=== PATIENT | female | born 1965 | race Caucasian/White ===

== ENCOUNTER 2022-09-08 10:31 | Emergency (ER) | payer BC, SELFPAY ==
[2022-09-08 10:39] VITALS: BP 127/64; PULSE 71; RESP 16; TEMP 36.6; O2SAT 100
--- NOTE | 2022-09-08 12:31 | ED.URI ---
HPI - URI/Sore Throat General Chief Complaint: Upper Respiratory Infection Stated Complaint: cough and wheezing Time Seen by Provider: 09/08/22 12:31 Source: patient and RN notes reviewed Mode of arrival: ambulatory Limitations: no limitations History of Present Illness HPI Narrative: 57-year-old female presents to [facility] [place] for with a 10 day history respiratory congestion, fatigue, sinus drainage,facial pressure, with cough with symptoms increased since yesterday with wheezing. Patient reports that she has had low grade fevers for the past 2 days highest 99.3F. Patient has been taking Tylenol and Mucinex for her symptoms. Patient reports that she has been COVID vaccinated and also booster and has had flu shot also. MD elicited complaint: cough Onset (ago): day(s) (10 with increased symptoms since yesterday.) Treatments prior to arrival: acetaminophen and other (Mucinex) Related Data Home Medications Medication Instructions Recorded Confirmed Celebrex 250 mg PO DAILY 11/01/19 09/08/22 Prozac 40 mg PO DAILY 11/01/19 09/08/22 omeprazole 40 mg PO DAILY 11/01/19 09/08/22 simvastatin 20 mg PO DAILY 11/01/19 09/08/22 Allergies Allergy/AdvReac Type Severity Reaction Status Date / Time azithromycin [From Zithromax] Allergy Rash Verified 09/08/22 12:08 Sulfa (Sulfonamide Allergy Rash Verified 09/08/22 12:08 Antibiotics) Review of Systems Review of Systems: CONSTITUTIONAL:Reports malaise, chills, sweats, or fever. EYES: Denies visual changes, redness, or discharge. ENT: Reports rhinorrhea, congestion, sinus pain, no otalgia no sore throat. CARDIOVASCULAR: Denies chest pain, palpitations, or edema. RESPIRATORY: Reports cough.? Denies dyspnea. GASTROINTESTINAL: Denies abdominal pain, nausea, vomiting, diarrhea SKIN: Denies rash or itching. MUSCULOSKELETAL: Denies myalgia. NEUROLOGIC: Denies headache, reports fatigue All systems reviewed & are unremarkable except as noted in HPI and below PMFSH Past Medical History Medical History (Updated 09/13/22 @ 11:17 by Mary Mccall NP) Anxiety and depression Arthritis Elevated cholesterol GERD (gastroesophageal reflux disease) Hypertension Kidney stone UTI (urinary tract infection) Surgical History Surgical History (Updated 09/13/22 @ 11:24 by Mary Mccall NP) H/O: hysterectomy partial History of ankle surgery left History of bladder surgery History of cholecystectomy Hx of total knee replacement Previous back surgery S/P removal of parathyroid gland Social History Social History (Updated 09/13/22 @ 11:14 by Mary Mccall NP) Smoking status: Never smoker Alcohol intake: unknown Substance use type: does not use Gender identity (if verbalized by the patient): Female Comments At time of signature, agree with nursing past medical, surgical, social and family history. There is no relevant family history pertinent to the presenting complaint Exam Narrative: GENERAL: Well-appearing, well-nourished, and in no acute distress. HEAD: Normocephalic EYES: PERRLA, conjunctivae clear ENT: Nares clear, turbinates edematous and erythematous, clear discharge. Mucous membranes moist. TM pearly davenport with dull light reflex bilaterally; no tragal tenderness. Oropharynx erythematous without lesions. Tonsils absent and without throat exudate, no drooling, no hoarseness, no trismus, uvula midline.post nasal drainage NECK: Supple. No lymphadenopathy CHEST: scattered wheezing on auscultation, breath sounds equal. wheezing present, no rhonchi, rales, or stridor. No respiratory distress, speaks in full sentences.SAO2 100% on room air HEART: Regular rate and rhythm. No murmur heard. SKIN: Warm, dry, no rash. NEURO: Alert and oriented x3. PSYCH: Normal mood and affect Course Course Emergency Course: Patient is aware of diagnosis, understands and agrees to treatment plan.? Anticipatory guidance given.? Patient agrees to follow-up
== END 2022-09-08 13:07 | disposition home or self-care (01) ==
PROVIDERS: Emergency Provider Registered Nurse; PCP Physician Assistant
DX: J32.9 Chronic sinusitis, unspecified (principal); J40 Bronchitis, not specified as acute or chronic; M19.90 Unspecified osteoarthritis, unspecified site; E78.00 Pure hypercholesterolemia, unspecified; K21.9 Gastro-esophageal reflux disease without esophagitis; I10 Essential (primary) hypertension; F41.9 Anxiety disorder, unspecified; F32.A Depression, unspecified; Z90.711 Acquired absence of uterus with remaining cervical stump; Z96.659 Presence of unspecified artificial knee joint; Z90.89 Acquired absence of other organs
CPT/HCPCS: 99213; G0463

== ENCOUNTER 2023-01-21 15:10 | Emergency (ER) | payer BC, SELFPAY ==
[2023-01-21 15:19] VITALS: BP 154/75; PULSE 66; RESP 16; TEMP 36.8; O2SAT 98
--- NOTE | 2023-01-21 15:26 | ED.URI ---
HPI - URI/Sore Throat General Chief Complaint: Upper Respiratory Infection Stated Complaint: Chest Congestion/Sore Throat Source: patient and RN notes reviewed History of Present Illness HPI Narrative: 57-year-old female presents to urgent care with complaints of chest congestion and cough worsening over the last week. Patient states this started with itchy ears, itchy throat, and upper respiratory symptoms that have now travel to her chest. Patient states she has been having the symptoms ROS week or so. Patient states today she noticed she was winded with walking at [facility]. Denies any fevers, chills, vomiting, or diarrhea. Patient does report a sore throat. Patient has been taking Mucinex and Sudafed at home without relief. Some parts of this dictation were generated by voice recognition software and may contain typographical and/or grammatical inaccuracies. Related Data Home Medications Medication Instructions Recorded Confirmed Celebrex 250 mg PO DAILY 11/01/19 09/08/22 Prozac 40 mg PO DAILY 11/01/19 09/08/22 omeprazole 40 mg PO DAILY 11/01/19 09/08/22 simvastatin 20 mg PO DAILY 11/01/19 09/08/22 cephalexin 250 mg capsule mg 01/21/23 Allergies Allergy/AdvReac Type Severity Reaction Status Date / Time azithromycin [From Zithromax] Allergy Rash Verified 09/08/22 12:08 Sulfa (Sulfonamide Allergy Rash Verified 09/08/22 12:08 Antibiotics) Review of Systems Review of Systems: Pertinent positives and pertinent negatives per HPI. PMFSH Past Medical History Medical History (Updated 01/21/23 @ 15:29 by Juana Larson APRN) Anxiety and depression Arthritis Elevated cholesterol GERD (gastroesophageal reflux disease) Hypertension Kidney stone UTI (urinary tract infection) Surgical History Surgical History (Updated 09/13/22 @ 11:24 by Mary Mccall NP) H/O: hysterectomy partial History of ankle surgery left History of bladder surgery History of cholecystectomy Hx of total knee replacement Previous back surgery S/P removal of parathyroid gland Social History Social History (Updated 09/13/22 @ 11:14 by Mary Mccall NP) Smoking status: Never smoker Alcohol intake: unknown Substance use type: does not use Gender identity (if verbalized by the patient): Female Comments Reviewed Exam Narrative: GENERAL: This is a well-nourished, well-developed patient, in no apparent distress. HEAD: normocephalic, atraumatic. EYES: Sclera clear/white. Vision is grossly intact. EARS: External ears normal, auditory canals clear and without drainage, TMs normal without perforation. Hearing grossly intact. NOSE: Congested THROAT: Mucous membranes moist, posterior pharynx clear. NECK: Neck supple, non-tender without lymphadenopathy, masses or thyromegaly. CARDIOVASCULAR: Regular rate and rhythm without murmurs, gallops, or rubs. RESPIRATORY: Clear to auscultation. Breath sounds equal bilaterally. No wheezes, rales, or rhonchi. GASTROINTESTINAL: Abdomen soft, non-tender, nondistended. Bowel sounds are active. No hepato-splenomegaly, or palpable masses. No guarding. SKIN: warm, intact with no suspicious lesions or rash, good texture and turgor. NEURO: awake, alert, and oriented to person, place and time. There were no obvious focal neurologic abnormalities. Course Course Level of Care: Express Care Visit Vital Signs Vital signs: Vital Signs Temperature 98.2 F 01/21/23 15:19 Pulse Rate 66 01/21/23 15:19 Respiratory Rate 16 01/21/23 15:19 Blood Pressure 154/75 H 01/21/23 15:19 Pulse Oximetry 98 01/21/23 15:19 Oxygen Delivery Room Air 01/21/23 15:19 Temperature 98.2 F 01/21/23 15:19 Pulse Rate 66 01/21/23 15:19 Respiratory Rate 16 01/21/23 15:19 Blood Pressure 154/75 H 01/21/23 15:19 Pulse Oximetry 98 01/21/23 15:19 Oxygen Delivery Room Air 01/21/23 15:19 Reviewed MDM - URI/Sore Throat MDM Narrative Medical decision making narrat
== END 2023-01-21 15:35 | disposition home or self-care (01) ==
PROVIDERS: Emergency Provider Nurse Practitioner Family; PCP Physician Assistant
DX: J40 Bronchitis, not specified as acute or chronic (principal); J32.9 Chronic sinusitis, unspecified; I10 Essential (primary) hypertension; F41.9 Anxiety disorder, unspecified; F32.A Depression, unspecified
CPT/HCPCS: 99213; G0463

== ENCOUNTER 2023-06-18 10:19 | Emergency (ER) | payer BC, SELFPAY ==
--- NOTE | ~2023-06-18 | XR_ITS ---
EXAMINATION: XR ankle RT min 3V DATE: 06/18/2023 10:57 INDICATION: Right ankle injury. TECHNIQUE: 4 views of right ankle were obtained. COMPARISON: None. FINDINGS: Bone alignment is normal. No fracture. There is mild osteoarthritis of the ankle joint. The re is chronic heterotopic ossification distal to lateral malleolus. There is an enthesophyte at plant ar aspect of calcaneal tuberosity. Ankle soft tissue swelling is noted. IMPRESSION: 1. Mild ankle joint osteoarthritis. Reviewed, dictated and finalized at location A.
[2023-06-18 10:26] VITALS: BP 152/56; PULSE 69; RESP 20; TEMP 36.9; O2SAT 100
--- NOTE | 2023-06-18 11:09 | ED.LOWEXIN ---
HPI - Extremity Injury (Lower) General Chief Complaint: Extremity Injury, Lower Stated Complaint: right ankle pain Time Seen by Provider: 06/18/23 10:55 Source: patient, RN notes reviewed and old records reviewed Mode of arrival: ambulatory Limitations: no limitations History of Present Illness HPI Narrative: 4-year-old female who presents to Express Care with complaints of right lateral ankle pain and swelling since Saturday when she reinjured her ankle when she stepped wrong and now has pain with movement. Patient reports in January she first injured her right ankle getting into pool and slipped on ladder and twisted ankle with swelling and bruising that did resolve with rest. Patient reports that she has applied some ice to her ankle and has taken Ibuprofen. MD complaint: ankle injury Onset (ago): day(s) (4th day of symptoms) Place: street/outdoors Treatments prior to arrival: cold therapy and NSAIDS Related Data Home Medications Medication Instructions Recorded Confirmed celecoxib 200 mg capsule 200 mg PO DIRECTED 06/18/23 06/18/23 fluoxetine 40 mg capsule 40 mg PO DIRECTED 06/18/23 06/18/23 montelukast 10 mg tablet 10 mg PO DIRECTED 06/18/23 06/18/23 simvastatin 20 mg tablet 20 mg PO DIRECTED 06/18/23 06/18/23 Allergies Allergy/AdvReac Type Severity Reaction Status Date / Time azithromycin [From Zithromax] Allergy Rash Verified 06/18/23 10:35 Sulfa (Sulfonamide Allergy Rash Verified 06/18/23 10:35 Antibiotics) Review of Systems Review of Systems: CONSTITUTIONAL: Denies fever, chills, or sweats. EYES: Denies visual changes, redness, or discharge. ENT: Denies rhinorrhea, congestion, sore throat, or otalgia. CARDIOVASCULAR: Denies chest pain, palpitations, or edema. RESPIRATORY: Denies cough or dyspnea. GASTROINTESTINAL: Denies abdominal pain, nausea, vomiting, or diarrhea. GENITOURINARY: Denies dysuria or hematuria. SKIN: Denies rash or itching. MUSCULOSKELETAL: Denies back pain,pain to lateral right ankle joint pain, or myalgia. NEUROLOGIC: Denies headache, numbness, or weakness. PSYCHIATRIC: History of anxiety or depression. All systems reviewed & are unremarkable except as noted in HPI and below [facility] Past Medical History Medical History (Updated 06/19/23 @ 00:01 by Background Daemon) Anxiety and depression Arthritis Elevated cholesterol GERD (gastroesophageal reflux disease) Hypertension Kidney stone UTI (urinary tract infection) Surgical History Surgical History (Updated 09/13/22 @ 11:24 by Mary Mccall NP) H/O: hysterectomy partial History of ankle surgery left History of bladder surgery History of cholecystectomy Hx of total knee replacement Previous back surgery S/P removal of parathyroid gland Social History Social History (Updated 09/13/22 @ 11:14 by Mary Mccall NP) Smoking status: Never smoker Alcohol intake: unknown Substance use type: does not use Gender identity (if verbalized by the patient): Female Comments At time of signature, agree with nursing past medical, surgical, social and family history. There is no relevant family history pertinent to the presenting complaint Exam Narrative: GENERAL: Well-appearing, well-nourished, obese and in no acute distress. HEAD: Normocephalic, atraumatic. EYES: PERRLA and EOMI. ENT: Nares clear, no rhinorrhea or epistaxis. Mucous membranes moist.TM's normal with good light reflex, throat pink with no lesions or swelling. NECK: Supple.no lymphadenopathy CHEST: Clear to auscultation. No respiratory distress.SAO2 100% on room air HEART: Regular rate and rhythm. No murmur heard. Normal peripheral pulses. ABDOMEN: Soft, nontender, nondistended, normal active bowel sounds. EXTREMITIES: Normal range of motion. edema right lateral ankle with pain increasing with movement and ambulation. Right foot has strong pedal pulse, foot warm and pink, nail beds isai briskly SKIN: Warm, dry, no rash. NEURO: No focal
== END 2023-06-18 11:28 | disposition home or self-care (01) ==
PROVIDERS: Emergency Provider Registered Nurse; PCP Physician Assistant
DX: M25.571 Pain in right ankle and joints of right foot (principal); M25.471 Effusion, right ankle; M19.90 Unspecified osteoarthritis, unspecified site; E78.00 Pure hypercholesterolemia, unspecified; K21.9 Gastro-esophageal reflux disease without esophagitis; I10 Essential (primary) hypertension; F41.9 Anxiety disorder, unspecified; F32.A Depression, unspecified
CPT/HCPCS: 73610; 99213; G0463

== ENCOUNTER 2024-08-02 12:59 | Emergency (ER) | payer BC, SELFPAY ==
--- NOTE | ~2024-08-02 | XR_ITS ---
XR chest 2V Ordering provider: CORNELIUS Olivas History: 59 years Female with . cough . Comparison: None. FINDINGS: MEDIASTINUM: The cardiac silhouette is not enlarged. LUNGS: No infiltrates, effusions or pneumothorax. OTHER: No free air under the diaphragm. Degenerative changes of the spine. IMPRESSION: No acute cardiopulmonary pathology. Reviewed, dictated and finalized at location A.
[2024-08-02 13:10] VITALS: BP 124/62; PULSE 94; RESP 16; TEMP 36.1; O2SAT 98
--- NOTE | 2024-08-02 13:54 | ED.GENADULT ---
HPI - General Adult General Chief complaint: Upper Respiratory Infection Stated complaint: chest cold/cough Source: patient Mode of arrival: ambulatory Limitations: no limitations History of Present Illness HPI narrative: Pt presents for evaluation of sick symptoms for the past nine days. She initially had a sore throat and sinus congestion. She now has postnasal drainage and nonproductive cough. No fever, chills, nausea, vomiting or diarrhea. She does not smoke. No recent sick contacts to her knowledge. She took a few COVID tests at home which were negative. She has been taking OTC cough medication. She is also on a steroid taper for musculoskeletal pain. She has recurrent bronchitis and has been using her albuterol inhaler. Related Data Home Medications Medication Instructions Recorded Confirmed celecoxib 200 mg capsule 200 mg PO DIRECTED 06/18/23 08/02/24 fluoxetine 40 mg capsule 40 mg PO DIRECTED 06/18/23 08/02/24 montelukast 10 mg tablet 10 mg PO DIRECTED 06/18/23 08/02/24 simvastatin 20 mg tablet 20 mg PO DIRECTED 06/18/23 08/02/24 esomeprazole magnesium 40 mg 40 mg PO DAILY 08/02/24 08/02/24 capsule,delayed release lisinopril 20 mg tablet 20 mg PO DAILY 08/02/24 08/02/24 Allergies Allergy/AdvReac Type Severity Reaction Status Date / Time azithromycin [From Zithromax] Allergy Rash Verified 08/02/24 13:06 Sulfa (Sulfonamide Allergy Rash Verified 08/02/24 13:06 Antibiotics) Review of Systems Review of Systems: CONSTITUTIONAL: Denies fever, chills, or sweats. EYES: Denies visual changes, redness, or discharge. ENT: Reports sore throat, sinus congestion, postnasal drainage. CARDIOVASCULAR: Denies chest pain, palpitations, or edema. RESPIRATORY: Reports cough and mild SOB GASTROINTESTINAL: Denies abdominal pain, nausea, vomiting, or diarrhea. GENITOURINARY: Denies dysuria or hematuria. SKIN: Denies rash or itching. MUSCULOSKELETAL: Denies back pain, joint pain, or myalgia. NEUROLOGIC: Denies headache, numbness, dizziness, or weakness. PSYCHIATRIC: Denies anxiety or depression. FORMERLY [facility], [facility] Past Medical History Medical History Anxiety and depression Arthritis Bronchitis Elevated cholesterol GERD (gastroesophageal reflux disease) Hypertension Kidney stone UTI (urinary tract infection) Surgical History Surgical History H/O: hysterectomy partial History of ankle surgery left History of bladder surgery History of cholecystectomy Hx of total knee replacement Previous back surgery S/P removal of parathyroid gland Family History Family History Mother Family history non-contributory Social History Social History Smoking status: Never smoker Alcohol intake: unknown Substance use type: does not use Gender identity (if verbalized by the patient): Female Exam Narrative: GENERAL: Well-appearing, well-nourished, and in no acute distress. HEAD: Normocephalic, atraumatic. EYES: PERRLA and EOMI. ENT: Nares clear, no rhinorrhea or epistaxis. Mucous membranes moist. Oropharynx without tonsillar hypertrophy exudate or other lesions. Bilateral TMs pearly davenport nonbulging NECK: Supple. No adenopathy or masses. No carotid bruits or JVD CHEST: Cough present on exam. Clear to auscultation. No respiratory distress. No wheezes rales or rhonchi HEART: Regular rate and rhythm. No murmur heard. Normal peripheral pulses. ABDOMEN: Soft, nontender, nondistended, normal active bowel sounds. EXTREMITIES: Normal range of motion. No edema. SKIN: Warm, dry, no rash. NEURO: No focal deficits. Alert and oriented x3. PSYCH: Normal mood and affect. Course Course Emergency Course: This is a 59-year-old female who presented for evaluation of sick s
== END 2024-08-02 14:25 | disposition home or self-care (01) ==
PROVIDERS: Emergency Provider Nurse Practitioner; PCP Physician Assistant
DX: J32.9 Chronic sinusitis, unspecified (principal); M19.90 Unspecified osteoarthritis, unspecified site; E78.00 Pure hypercholesterolemia, unspecified; K21.9 Gastro-esophageal reflux disease without esophagitis; I10 Essential (primary) hypertension; Z90.89 Acquired absence of other organs; F41.9 Anxiety disorder, unspecified; F32.A Depression, unspecified
CPT/HCPCS: 71046; 99213; G0463

== ENCOUNTER 2025-08-02 13:25 | Emergency (ER) | payer BC, SELFPAY ==
[2025-08-02 13:31] VITALS: BP 136/75; PULSE 69; RESP 17; TEMP 36.5; O2SAT 99
--- NOTE | 2025-08-02 14:26 | ED.GENADULT ---
HPI - General Adult General Chief complaint: Unspecified Stated complaint: Left Side of Face Tingling Time Seen by Provider: 08/02/25 14:10 Source: patient and RN notes reviewed Mode of arrival: ambulatory Limitations: no limitations History of Present Illness HPI narrative: 60-year-old female presents Express Care complaining of tingling sensation to the right side of her face. Patient says started symptoms started approximately 30 hours ago. She walking reported feeling at her right side of her face felt more sensitive than the left. Says since he feels like the sensation as intensifies reports mild pain to the right side her face along with pruritus. Patient denies facial weakness, facial droop, slurred speech, dysarthria, dysphagia, difficulty clearing secretions, breathing problems, fevers, bites, chills, dizziness, lightheadedness, headaches, vision changes, double vision, one-sided weakness, focal weakness, difficulty walking, vomiting, paresthesia of her extremities, loss of consciousness, seizures, rash, or any other symptoms. Patient says she has a history of chickenpox as a child, she says she is vaccinated for shingles. Patient called her PCP and was told to come here for further evaluation. Related Data Home Medications ?Medication ?Instructions ?Recorded ?Confirmed ?Last Taken ?Type celecoxib 200 mg capsule 200 mg PO DIRECTED 06/18/23 08/02/24 Unknown History fluoxetine 40 mg capsule 40 mg PO DIRECTED 06/18/23 08/02/24 Unknown History montelukast 10 mg tablet 10 mg PO DIRECTED 06/18/23 08/02/24 Unknown History simvastatin 20 mg tablet 20 mg PO DIRECTED 06/18/23 08/02/24 Unknown History esomeprazole magnesium 40 mg 40 mg PO DAILY 08/02/24 08/02/24 Unknown History capsule,delayed release lisinopril 20 mg tablet 20 mg PO DAILY 08/02/24 08/02/24 Unknown History semaglutide (weight loss) 1.7 mg subcut 08/02/25 Unknown History mg/0.75 mL subcutaneous pen injector (Wegovy) Allergies Allergy/AdvReac Type Severity Reaction Status Date / Time azithromycin (From Zithromax) Allergy Rash Verified 08/02/25 13:44 Sulfa (Sulfonamide Allergy Rash Verified 08/02/25 13:44 Antibiotics) Review of Systems Review of Systems: CONSTITUTIONAL: Denies fever, chills, or sweats. EYES: Denies visual changes, double vision, redness, or discharge. ENT: Denies rhinorrhea, congestion, sore throat, or otalgia. CARDIOVASCULAR: Denies chest pain, palpitations, lightheadedness, dizziness, or edema. RESPIRATORY: Denies cough or dyspnea. GASTROINTESTINAL: Denies abdominal pain, nausea, vomiting, or diarrhea. GENITOURINARY: Denies dysuria or hematuria. SKIN: Denies rash or itching. MUSCULOSKELETAL: Denies back pain, joint pain, or myalgia. NEUROLOGIC: Denies headache, numbness, focal weakness, slurred speech, facial droop, confusion, seizures, loss of consciousness or weakness. Positive for paresthesia. PSYCHIATRIC: Denies anxiety or depression. All other systems reviewed are negative, except as documented in HPI. FORMERLY [facility], [facility] Past Medical History Medical History Bronchitis Arthritis UTI (urinary tract infection) GERD (gastroesophageal reflux disease) Anxiety and depression Hypertension Elevated cholesterol Kidney stone Surgical History Surgical History History of ankle surgery left Previous back surgery History of cholecystectomy History of bladder surgery S/P removal of parathyroid gland H/O: hysterectomy partial Hx of total knee replacement Family History Family History Mother Family history non-contributory Social History Social History Smoking status: Never smoker Alcohol intake: unknown Substance use type: does not use Gender identity (if verbalized by the patient): Female Comments At the time of my signature, I reviewed and agree with the nursing past medical, surgical, social, and family history. There is no relevant family history pertinent to the patient complaint. Exam Narrative: GENERAL: This is a well-nourished, well-developed adult, in no apparent distress. They are non ill-appearing, nontoxic appearing. HEAD: normocephalic, atraumatic. EYES: Sclera clear/white. Conjunctiva normal. Vision is grossly intact. Extraocular movements intact. Pupils PERRLA. Nystagmus. EARS: External ears normal, auditory canals clear and without drainage, TMs normal without perforation. Hearing grossly intact. NOSE: External nose normal with no obvious nasal discharge, nasal turbinates without redness, no rhinorrhea. THROAT: Mucous membranes moist, posterior pharynx clear, without erythema or swelling. Uvula midline. NECK: Neck supple, non-tender without lymphadenopathy, masses or thyromegaly. CARDIOVASCULAR: Regular rate and rhythm without murmurs, gallops, or rubs. RESPIRATORY: Clear to auscultation. Breath sounds equal bilaterally. No wheezes, rales, or rhonchi. SKIN: warm, Dry, intact with no suspicious lesions or rash, good texture and turgor. NEURO: awake, alert, and oriented to person, place and time. There were no obvious focal neurologic abnormalities. Cranial nerve 2-12 grossly intact. Patient reports increased sensitivity to the right side of her face. No facial droop. Speech is clear and comprehensive. No limb ataxia. No inattention or extinction. No pronator drift. School Photographs Detailer strength 5/5 equal bilaterally, arm strength 5/5 equal bilaterally, leg strength 5/5 equal bilaterally. Normal plantar flexion and dorsiflexion. Tongue is midline. EXTREMITIES: No joint tenderness, effusion, or edema noted. BACK: Nontender without deformity. Course Course Emergency Course: Portions of this record may have been created with voice recognition software Level of Care: Express Care Visit Vital Signs Vital signs: Vital Signs Temperature 97.7 F 08/02/25 13:31 Pulse Rate 69 08/02/25 13:31 Respiratory Rate 17 08/02/25 13:31 Blood Pressure 136/75 08/02/25 13:31 Pulse Oximetry 99 08/02/25 13:31 Oxygen Delivery Room Air 08/02/25 13:31 Temperature 97.7 F 08/02/25 13:31 Pulse Rate 69 08/02/25 13:31 Respiratory Rate 17 08/02/25 13:31 Blood Pressure 136/75 08/02/25 13:31 Pulse Oximetry 99 08/02/25 13:31 Oxygen Delivery Room Air 08/02/25 13:31 Reviewed Medical Decision Making MDM Narrative Medical decision making narrative: NIHSS score of 0. Low suspicion for CVA. Patient reports increased sensation to the right side of her face reporting feeling more sensitive in the left side of her face. No rash identified. Patient neurologically intact. Patient had chickenpox as a child, she is vaccinated for shingles. Could be the start of shingles. Patient has a history of hyperlipidemia and hypertension. Patient nonsmoker. Advised patient that we have limited resources and urge him to evaluate her complaints. Offered patient ER transfer for further evaluation and management of her symptoms and she declined. Will send her prescription acyclovir advise only take a she develops a rash. Strict ER precautions discussed with patient specialist develops one-sided weakness, facial drooping, slurred speech, confusion, loss of consciousness, dizziness, lightheadedness, vision changes, double vision, severe pains, severe headaches, vomiting, fevers, or any serious concerns. Discussed physical exam findings. Advised supportive measures and signs/symptoms to go to the ER. Pt is appropriate for outpt treatment and f/u. Differential Diagnosis Differential Diagnosis: Trigeminal neuralgia, herpes zoster, CVA, TIA, Colunga's palsy, neuralgia Vital Signs Vital Signs: Vital Signs Temperature 97.7 F 08/02/25 13:31 Pulse Rate 69 08/02/25 13:31 Respiratory Rate 17 08/02/25 13:31 Blood Pressure 136/75 08/02/25 13:31 Pulse Oximetry 99 08/02/25 13:31 Oxygen Delivery Room Air 08/02/25 13:31 Temperature 97.7 F 08/02/25 13:31 Pulse Rate 69 08/02/25 13:31 Respiratory Rate 17 08/02/25 13:31 Blood Pressure 136/75 08/02/25 13:31 Pulse Oximetry 99 08/02/25 13:31 Oxygen Delivery Room Air 08/02/25 13:31 Critical Care Time Critical Care Time Critical Care Time: No Discharge Plan Discharge Clinical Impression: Numbness and tingling of right face Patient Disposition: Home Condition: Stable Instructions: Shingles (ED), Paresthesia (ED) Additional Instructions: Start the acyclovir only if you develop a rash. Symptoms could be the start of shingles. Follow-up with your PCP in 2-3 days. May take Tylenol ibuprofen as needed for pain. Follow instructions on the bottle. Please go to the ER if he develops worsening symptoms, facial droop, facial paralysis, one-sided weakness, dizziness, lightheadedness, severe headaches, vision changes, nausea, vomiting, difficulty walking, difficulty talking, slurred speech, difficulty swallowing, or any serious symptoms. Patient Language: Serbian Prescriptions: New acyclovir 800 mg tablet 800 mg PO Q4H 7 Days Qty: 42 0RF Rx Instructions: while awake; give 5 doses in 24 hours No Action Wegovy 1.7 mg/0.75 mL pen injector SUBCUT celecoxib 200 mg capsule 200 mg PO DIRECTED fluoxetine 40 mg capsule 40 mg PO DIRECTED simvastatin 20 mg tablet 20 mg PO DIRECTED montelukast 10 mg tablet 10 mg PO DIRECTED lisinopril 20 mg tablet 20 mg PO DAILY esomeprazole magnesium 40 mg capsule,delayed release(DR/EC) 40 mg PO DAILY Follow-up/Referrals: Mandie,KEISHA Montes [Primary Care Provider, Unknown] Time of Disposition: 14:23 Quality Stroke Scale Stroke Scale 1: Dictation/Comment: Unremarkable Stroke scale date:: 08/02/25 Stroke scale time:: 14:15 1a Level of consciousness: alert-0 1b Level of consciousness questions: answers both correctly-0 1c Level of consciousness commands: obeys both correctly-0 2 Best gaze: normal-0 3 Visual: no visual loss-0 4 Facial palsy: normal-0 5a Motor: left arm: no drift-0 5b Motor: right arm: no drift-0 6a Motor: left leg: no drift-0 6b Motor: right leg: no drift-0 7 Limb ataxia: absent-0 8 Sensory: normal-0 9 Best language: no aphasia-0 10 Dysarthria: normal-0 11 Extinction and inattention: no abnormality-0 Level:: 0
--- OUTSIDE RECORDS SUMMARY | 2025-08-02 15:15 | XMS_ITS | Clinical Summary ---
Author Organization [facility] Address [address] [address] [place] [address] Phone Care Team Providers Care Manager Ent Name Role Phone Unavailable Primary Care Provider Unavailabl e Social History Tobacco Use Types Packs/Day Years Used Date Smoking Tobacco: Never Assessed Comments Unknown Sex and Gender Information Value Date Recorded Sex Assigned at Not on file Legal Sex Female 1:10 PM CDT Gender Identity Not on file Sexual Orientation Not on file Plan of Treatment Health Maintenance Due Date Last Done Comments DTAP/TDAP/TD VACCINES (1 - Tdap) 1982 HPV/Cotest (21-29) 02/07/1984 CERVICAL CANCER SCREENING 1993 HPV/Cotest (30-65) 1993 PAP SMEAR 1993 BREAST CANCER SCREENING 2003 COLORECTAL SCREENING 02/07/2008 Colorectal Cancer Screening 02/07/2008 FIT-DNA Q 3 years 02/07/2008 FIT/FOBT Q 1 year 02/07/2008 Flex Sig/CT Colonography Q 5 years 02/07/2008 ZOSTER VACCINE (1 of 2) 2013 INFLUENZA VACCINE (#1) 2025 RSV VACCINE (60+ or ) (1 - 1-dose 75+ series) 2038 Insurance [facility] BLUE ACCESS CHOICE
--- OUTSIDE RECORDS SUMMARY | 2025-08-02 15:16 | XMS_ITS | Encounter Summary ---
Author Organization [facility] Address [address] [place] [address] Care Team Providers Care Radio Installer Name Role Phone Rodrigo Lockwood Primary Care Provider Josh Mckeon MD Unavailable [phone] Major Carpenter MD Unavailable [phone] Reason for Visit * Reason Onset Date Comments Numbness 08/02/2025 Encounter Details Date Type Department Care Team (Late st Contact Info) Description 08/02/2025 Nurse Triage [facility] Primary Care at [address] [place] [address] Rodrigo Lockwood PA [address] [place] [address] [address] [place] [address] Social History Tobacco Use Types Packs/Day Years Used Date Smoking Tobacco: Never Smokeless Tobacco: Never Alcohol Use Standard Drinks/Week Comments Yes 0 (1 standard drink = 0.6 oz pur e alcohol) [facility] Utilities Answer Date Recorded In the past 12 months has [employer] electric, gas, oil, or water company threatened to shut off services in your home? No 11/25/2024 Social Connection and Isolation Panel Answer Date Recorded In a typical week, how many times do you talk on the phone with family, friends, or neighbors? More than three times a week 11/25/2024 How often do you get togethe r with friends or relatives? More than three times a week 11/25/2024 How often do you attend chur ch or advent services? 1 to 4 times per year 11/25/2024 Do you belong to any clubs o r organizations such as scientologist groups, unions, fraternal or athletic groups, or school groups? No 11/25/2024 How often do you attend meet ings of the clubs or organizations you belong to? Never 11/25/2024 Are you , , di vorced, , never , or living with a partner? 11/25/2024 Overall Financial Resource Strain (CARDIA) Answe r Date Recorded How hard is it for you to pa y for the very basics like food, housing, medical care, and heating? Not hard at all 11/25/2024 PHQ-2 Answer Date Recorded PHQ-2 Total Score (If total score is 3 or more points, staff should administer the PHQ-9) 0 07/07/2025 Hunger Vital Sign Answer Date Recorded Within the past 12 months, y ou worried that your food would run out before you got the money to buy more. Never true 11/25/19 25 Within the past 12 months, t he food you bought just didn't last and you didn't have money to get more. Never true 11/25/2024 PRAPARE - Transportation Answer Date Re corded In the past 12 months, has l ack of transportation kept you from medical appointments or from getting medications? No 11/14 In the past 12 months, has l ack of transportation kept you from meetings, work, or from getting things needed for daily living? No 11/25/2024 PHQ-9 Answer Date Recorded PHQ-9 Total Score 2 08/11/2024 Housing Stability Vital Sign Answer Mina e Recorded In the last 12 months, was t here a time when you were not able to pay the mortgage or rent on time? No 11/25/2024 In the past 12 months, how m any times have you moved where you were living? 1 11/25/2024 At any time in the past 12 m [facility], were you homeless or living in a fci (including now)? No 11/25/2024 AUDIT-C Answer Date Recorded Q1: How often do you have a drink containing alc ohol? Monthly or less 07/07/2025 Q2: How many drinks containi ng alcohol do you have on a typical day when you are drinking? 1 or 2 07/07/2025 Q3: How often do you have si x or more drinks on one occasion? Never 07/07/2025 Personal Safety Answer Date Recorded Have you ever been in or are you currently in a harmful physical or emotional relationship or is someone making you feel afraid or unsafe? 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 Noticed some tingling yesterday and having some itching in corner, no complete loss of sensation. Is sensitive to touch. No asymmetry. No eye drainage or redness, no rashes, no fever. History fusion C4-C6 11/2024, no new neckpain. RN advised UC as no open OV, pt agrees with advice and to call if worsens or needs f/u. Disposition Go to Office Now Reason for Disposition Tingling (e.g., pins and needles) of the face, arm or leg on one side of the body, that is present now (Exceptions: Chronic or recurrent symptom lasting > 4 weeks; or from known cause, such as: bumped elbow, carpal tunnel, pinched nerve.) Protocols Used Neurologic Auyjkqm-Yyiej-CW * Telephone Encounter - Kelsey Swann RN - 08/02/2025 12:17 PM CDT Regarding: tingling/ numbness (corner of eye to cheek) rt side ----- Message from January sent at 08/02/2025 12:08 PM CDT ----- Symptom Based Call Chief Complaint(s): tingling/ numbness (corner of eye to cheek) rt side Duration: 08/01/25 What type of symptom(s) is the patient experiencing? Red Flag. Is the patient concerned they are experiencing a medical emergency requiring an ambulance? No Additional Comments: mild pain when touched, the corner of her eye down her cheek is numb/tingling all the time. Just on the right side. Does message need to be routed? Yes-Action Needed documented in this encounter Plan of Treatment Not on file documented as of this encounter Visit Diagnoses Not on filedocumented in this encounter Care Teams Radio Installer Relationship Specialty Start Date End Date Rodrigo Lockwood PA 2 [facility] [address] [address] PCP - General Internal Medicine 06/14/22 [place] [id number] [facility] [place] [address] Consulting Physician Neurosurgery 08/13/24 [place] [id number] [address] Consulting Physician Orthopedic Surgery 01/05/25 rox opt Optometry 01/05/25 documented as of this encounter
--- OUTSIDE RECORDS SUMMARY | 2025-08-02 15:16 | XMS_ITS | Encounter Summary ---
Author Organization [facility] Address [address] [place] [address] Care Team Providers Care Dairy Bar Manager Name Role Phone Ranulfo Sol MD Primary Care Provi rae Ligia Gtz INFORMATION SYSTEMS AUDITOR Unavailable [phone] Rodrigo Lockwood Primary Care Provider Rodrigo Lockwood Primary Care Provider Evelin Desouza INFORMATION SYSTEMS AUDITOR Unavailable [phone] Adia Holguin INFORMATION SYSTEMS AUDITOR Unavailable [phone] Queenie Lee MD Unavailable [phone] Josh Mckeon MD Unavailable Major Carpenter MD Unavailable [phone] Reason for Visit * Reason Onset Date Comments Scheduling Appointments 03/28/2021 confirmi ng mammogram appt Encounter Details Date Type Department Care Team (Late st Contact Info) Description 03/28/2021 Telephone [facility] [address] [place] [id number] [address] Scheduling Appointments (confirming mammogram appt) Social History Tobacco Use Types Packs/Day Years Used Date Smoking Tobacco: Never Smokeless Tobacco: Never Alcohol Use Standard Drinks/Week Comments Yes 0 (1 standard drink = 0.6 oz pur e alcohol) PHQ-2 Answer Date Recorded PHQ-2 Total Score (If total score is 3 or more points, staff should administer the PHQ-9) 0 09/21/2020 Comments No Sex and Gender Information Value Date Recorded Sex Assigned at Not on file Legal Sex Female 11:51 PM CAUSTIC CRESYLATE SHIFT SUPERINTENDENT Gender Identity Female 03/08/2020 12:49 PM CDT Sexual Orientation Straight 11/17/2020 10 :56 AM CAUSTIC CRESYLATE SHIFT SUPERINTENDENT 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 on file Not on file Not o n file documented as of this encounter Plan of Treatment Not on file documented as of this encounter Visit Diagnoses Not on filedocumented in this encounter Additional Health Concerns Infection Onset Date Last Indicated Resolved Time COVID: Suspected 02/08/2023 02/08/2023 02/08/2023 3:40 PM CDT COVID: Suspected 08/25/2023 08/25/2023 08/25/2023 1:29 PM CAUSTIC CRESYLATE SHIFT SUPERINTENDENT documented as of this encounter Care Teams Dairy Bar Manager Relationship Specialty Start Date End Date Ranulfo Sol MD PCP - General 01/11/17 05/23/22 Rodrigo Lockwood PA [address] [place] [address] [place] [address] PCP - General Internal Medicine 06/14/22 Rodrigo Lockwood PA [address] [place] [address] [place] [address] PCP - General 05/24/22 06/13/22 Ligia Gtz NP Nurse Practitioner Internal Medicine 11/11/19 12/26/22 Evelin Desouza, INFORMATION SYSTEMS AUDITOR [address] [facility] [address] [place] [address] Nurse Practitioner Urology 12/27/22 12/29/23 [place] [address] [address] [place] [address] Nurse Practitioner Infectious Diseases 12/27/22 4 Gabriel Rios, [place] [address] [address] [place] [address] Consulting Physician Endocrinology 12/27/22 12/29/23 [place] [address] [facility] [place] [place] [address] Consulting Physician Neurosurgery 08/13/24 [place] [id number] [address] [place] [address] Consulting Physician Orthopedic Surgery 01/05/25 rox opt Optometry 01/05/25 documented as of this encounter
--- OUTSIDE RECORDS SUMMARY | 2025-08-02 15:16 | XMS_ITS | Clinical Summary ---
Author Organization [facility] Address [address] [place] [address] Care Team Providers Care Sous Chef Kitchen Manager Name Role Phone Rodrigo Lockwood Primary Care Provider Josh Mckeon MD Unavailable [phone] Major Carpenter MD Unavailable [phone] Allergies Active Allergy Reactions Criticality Noted Date Comments Aspirin Nausea only Medium Azithromycin Rash,Other (See comments) Medium 12/19/2015 Reaction: rash on chest, Sulfamethoxazole-Trimet hoprim Hives Medium 09/09/2019 [employer] [facility] [employer] Rash Medium 12/23/2024 Surgical glue - rash Tirzepatide (Weight Loss) Other (See comments) 07/07/2025 Injection site reaction Medications ascorbic acid (VITAMIN C) 1,000 mg tabletIndicatio ns:Vitamin C Deficiency Take 1 tablet (1,000 mg total) by mouth java support engineer before breakfast Active multivitamin tabletIndicatio ns:Vitamin Deficiency Prevention Take 1 tablet by mouth java support engineer before breakfast Active cetirizine (ZyrTEC) 10 mg tabletIndicatio ns:Seasonal Allergic Rhinitis Take 1 tablet (10 mg total) by mouth java support engineer before breakfast Active cholecalciferol (VITAMIN D-3) 1,000 unit capsule Take 10 capsules (10,000 Units total) by mouth every morning Active cephalexin (KEFLEX) 250 mg capsule Take 1 capsule (250 mg total) by mouth daily 90 capsule 3 10/13/20 24 Active zinc gluconate 50 mg tablet Take 1 tablet (50 mg total) by mouth every morning Active wheat dextrin (BENEFIBER SUGAR FREE, DEXTRIN, ORAL) Take 30 mL by mouth every morning Active FLUoxetine (PROzac) 40 mg capsule Take 1 capsule (40 mg total) by mouth every morning 90 capsule 3 01/06/20 25 Active albuterol HFA (PROVENTIL HFA,VENTOLIN HFA,PROAIR HFA) 90 mcg/actuation inhalerIndicati ons:Mild intermittent asthma without complication Inhale 2 puffs every 4 (four) hours as needed for wheezing 3 each 4 04/19/20 25 Active budesonide-form oteroL (SYMBICORT) 160-4.5 mcg/actuation inhaler Inhale 2 puffs 2 (two) times a day Rinse mouth with water after use. Do not swallow. 1 each 11 05/03/20 25 Active celecoxib (CeleBREX) 200 mg capsule TAKE 1 CAPSULE BY MOUTH EVERY DAY 90 capsule 1 05/18/20 25 Active lisinopriL (PRINIVIL,ZESTR IL) 20 mg tablet TAKE 1 TABLET DAILY 90 tablet 3 05/21/20 25 Active semaglutide (WEGOVY) 1.7 mg/0.75 mL auto-injector Inject 1.7 mg under the skin every 7 days 3 mL 3 07/09/[address] (NexIUM) 40 mg capsule TAKE 1 CAPSULE (40 MG TOTAL) BY MOUTH DAILY. 90 capsule 2 07/13/20 25 Active simvastatin (ZOCOR) 20 mg tablet TAKE 1 TABLET DAILY 90 tablet 3 07/16/20 25 Active simvastatin (ZOCOR) 20 mg tablet TAKE 1 TABLET DAILY 90 tablet 3 10/01/20 24 025 Discontinued acetaminophen (TYLENOL) 500 mg tabletIndicatio ns:Status post cervical spinal fusion Take 2 tablets (1,000 mg total) by mouth every 6 (six) hours 112 tablet 12/07/19 25 025 Discontinued cyclobenzaprine (FLEXERIL) 5 mg tablet Take 1 tablet (5 mg total) by mouth 3 (three) times a day as needed for muscle spasms 30 tablet 01/09/20 [address] (NexIUM) 40 mg capsule TAKE 1 CAPSULE (40 MG TOTAL) BY MOUTH DAILY. 100 capsule 1 01/17/20 025 Discontinued benzonatate (TESSALON) 200 mg capsule Take 1 capsule (200 mg total) by mouth 3 (three) times a day as needed for cough 40 capsule 05/03/20 25 025 Discontinued semaglutide (Wegovy) 1 mg/0.5 mL auto-injector Inject 1 mg under the skin every 7 days 2 mL 3 05/26/20 25 025 Discontinued semaglutide (WEGOVY) 1.7 mg/0.75 mL auto-injector Inject 1.7 mg under the skin every 7 days 3 mL 3 07/07/20 025 Discontinued(Re order) Active Problems Problem Noted Date Diagnosed Date Class 3 severe obesity due t o excess calories with body mass index (BMI) of 40.0 to 44.9 in adult 05/03/2025 Assessment & Plan (07/07/2025 10:23 AM CDT): She was counseled on the importance of maintaining a healthy weight and the risks of obesity. Weight loss recommended. Stenosis of cervical spine with myelopathy 11/24 Cervical vertebral fusion 11/24/2024 Vitamin D deficiency 12/25/2021 Assessment & Plan (01/02/2022 4:34 PM CDT): Advised to take [id number] vitamin-D3 1000 units oral daily Assessment & Plan (12/25/2021 11:09 AM CDT): D at 24 and see what your specialist wants to do Insomnia secondary to chronic pain 11/08/2021 Degenerative lumbar spinal stenosis 07/12/2021 Lumbar facet arthropathy 07/12/2021 Lumbar post-laminectomy syndrome 07/12/2021 Lumbar radiculopathy 07/12/2021 Chronic right-sided low back pain with right-juanita ed sciatica 07/12/2021 Calcium oxalate kidney stones 04/27/2021 Assessment & Plan (04/27/2021 4:18 PM CDT): - patient has history of calcium oxalate renal stones Advise good oral calcium intake in diet atleast 4 servings a day Low oxalate diet Low salt diet Advise very good oral hydration Rule out primary hyperparathyroidism as a cause of renal stones PE (physical exam), annual 09/21/2020 Assessment & Plan (01/04/2025 2:20 PM CDT): Discussed routine screenings and vaccines Assessment & Plan (12/30/2023 7:44 AM CDT): Discussed routine screenings and vaccines Assessment & Plan (12/25/2021 11:12 AM CDT): Well exam low fall risk depresoin screen nl cognitive sc reen nl see's pth surg and edno . Dr macias chronic uti and getting back on dialy meds. Assessment & Plan (09/21/2020 1:51 PM FITNESS PROFESSIONAL): Well exsam wt isue Sugar htn andlipdis good recureent blader infectnoi and stone Ask to check wity uro as to what they walnt to do; Recurrent UTI 05/02/2020 Assessment & Plan (12/25/2021 10:59 AM CDT): Acute flair. Had stopped the daily antibiotdcs and re filled to restart in future and follow up with id. Will check a urine for sensitivity given th long hx and repeated courses. emprici pyridium and macrobid till culutres back Assessment & Plan (05/02/2020 3:55 PM CDT): Keflex 25o daily and worked and off month and back restgart and stay on Hypophosphatemia 05/04/2019 Discogenic low back pain 02/18/2019 DDD (degenerative disc disea se), lumbar-L4-5 bulging with Modic changes 02/18/2019 Chronic cough 01/03/2019 Assessment & Plan (02/08/2023 7:44 PM CDT): Ordered CXR-r/o bronchitis Continue albuterol Inh as directed-rinse mouth well and spit after each use Push fluids-drink water Follow up in 2 weeks if no improvement Will plan consult to pulmonology if no improvement Assessment & Plan (03/26/2019 12:11 AM CDT): She reports moderate improvement in chronic cough. Possible etiologies of chronic cough include: 1. Chronic postnasal drip/allergic rhinitis, 2. Chronic acid reflux disease, PFT has shown no evidence of airway hyperreactivity. Her cough was initially attributed to lisinopril and it was switched to losartan; however she could not tolerate losartan and switched back to lisinopril. She was advised to continue with fluticasone nasal spray and albuterol inhaler 2 puffs as needed. Assessment & Plan (01/03/2019 5:58 PM CDT): Etiology of chronic cough is multifactorial includin. Airway hyperreactivity, 2. Chronic postnasal drip/allergic rhinitis, 3. Chronic acid reflux disease, 4. Lisinopril. Today lisinopril switched to losartan. She was also started on fluticasone nasal spray. She was advised to double the dose of Nexium. We will also continue with current inhaled bronchodilators. Allergic rhinitis due to pollen 01/03/2019 Assessment & Plan (03/26/2019 12:11 AM CDT): Symptoms well controlled. She was advised to continue with fluticasone nasal spray. Assessment & Plan (01/03/2019 5:59 PM CDT): She has all clinical features of allergic rhinitis including chronic postnasal drip, chronic nasal congestion and mild runny nose. She was advised to continue with fluticasone nasal spray. Presence of right artificial knee joint 01/28/20 18 IGT (impaired glucose tolerance) 08/20/2017 Assessment & Plan (12/25/2021 11:07 AM CDT): a1c at 5.7 Assessment & Plan (09/21/2020 1:48 PM FITNESS PROFESSIONAL): a1cv at 5.5 and nl Assessment & Plan (05/02/2020 3:53 PM CDT): a1c at 5.5 and 5.6 upper nl Assessment & Plan (09/21/2019 3:54 PM FITNESS PROFESSIONAL): a1c at 5.7 and 5.6 nl Assessment & Plan (07/14/2018 10:28 AM CDT): a1c at 5/5 amd 5/6 nl Assessment & Plan (08/20/2017 2:46 PM FITNESS PROFESSIONAL): a1c at 5.6 and nl 5.6 andlessnl Recurrent major depressive disorder, in full rem ission 08/20/2017 Overview (07/06/2024): Last Assessment & Plan: Well controlled with meds Assessment & Plan (12/25/2021 11:05 AM CDT): Stable on meds asn stay on Assessment & Plan (09/21/2020 1:49 PM FITNESS PROFESSIONAL): contmeds as on Assessment & Plan (05/02/2020 3:51 PM CDT): contyroledwithn meds Assessment & Plan (07/14/2018 10:28 AM CDT): Johny tran working Assessment & Plan (08/20/2017 2:47 PM FITNESS PROFESSIONAL): Well controlled with meds Mild intermittent asthma without complication Assessment & Plan (04/19/2025 2:21 PM CDT): -chronic, suboptimally controlled -patient currently prescribed albuterol rescue inhaler -patient reports their asthma is typically well-controlled on current regimen, but has been experiencing worsening shortness of breath, wheezing, cough over the past 1-2 weeks -patient endorses needing to use rescue inhaler frequently -no wheezing noted on exam, but lung sounds are coarse -refill of albuterol inhaler provided, prednisone taper prescribed -Encouraged patient to reach out to office if not improved -continue current treatment plan Orders: albuterol HFA (PROVENTIL HFA,VENTOLIN HFA,PROAIR HFA) 90 mcg/actuation inhaler; Inhale 2 puffs every 4 (four) hours as needed for wheezing predniSONE (DELTASONE) 20 mg tablet; Take 2 tablets (40 mg) by mouth daily for 3 days, THEN 1 tablet (20 mg) daily for 3 days, THEN 0.5 tablets (10 mg) daily for 4 days. Assessment & Plan (01/04/2025 2:21 PM CDT): Discussed asthma action plan Assessment & Plan (07/06/2024 7:50 AM CDT): Discussed asthma action plan Assessment & Plan (12/30/2023 7:44 AM CDT): Discussed asthma action plan Assessment & Plan (12/25/2021 11:07 AM CDT): No recent breakthru Assessment & Plan (01/03/2019 5:55 PM CDT): She has a history of mild intermittent asthma and currently she is on combination of Symbicort, albuterol inhaler and montelukast. She complains of occasional wheezing and chest tightness. She was diagnosed with airway hyperreactivity long time ago based on history and clinical examination; however she has never had a PFT done. She was advised to continue with current inhalers. Her inhaler technique was reviewed and correct technique was clearly explained and demonstrated. PFT and 6 min walk test were ordered. Assessment & Plan (07/14/2018 10:25 AM CDT): Given cough start needs to restart suymbicort and start an sstay on Simbicort. Once cough free for a week or longer then try to back off the symbicort and if needs then res tart Assessment & Plan (12/04/2017 2:46 PM FITNESS PROFESSIONAL): Stable. No asthma exacerbation noted today in office. Continue Symbicort for maintenance and certainly use of ProAir on a p.r.n. basis for bronchial spasms as indicated Assessment & Plan (10/15/2017 11:49 AM FITNESS PROFESSIONAL): Asthma seems stable at this time considering acute bronchitis. I advised to continue on current dosing of Symbicort twice daily along with use of ProAir p.r.n. Continue the increased fluids to prevent dehydration as this all will also worsen asthma and also continue tapering prednisone as previously prescribed by Dr. Sol. Will follow up here in a week to reassess asthma condition and acute bronchitis as well Assessment & Plan (09/27/2017 10:10 AM FITNESS PROFESSIONAL): Asthma exacerbation noted office today secondary to influenza virus. Tapering corticosteroids were prescribed in office to taken tapering fashion along with continuing Symbicort inhaler twice daily as previously prescribed and use of ProAir every 4-6 hours for the next few days and then p.r.n. thereafter. Increasing fluids and Mucinex ysos-bnx-rcieudc was also advised. I did prescribe Tessalon Perles for her only to take on a p.r.n. basis at night for suppression as would like to rid of the mucus to prevent any settling into her chest. Assessment & Plan (08/20/2017 2:48 PM FITNESS PROFESSIONAL): Off meds and doing well restart singulair. symbicort at First sign of a cold as excpect to drag on and last longer liza if not on toop of it Primary osteoarthritis of right knee 04/10/2016 Sciatica 03/08/2015 Overview (01/18/2017): Sciatica Gastroesophageal reflux disease 02/27/2014 Overview (01/16/2017): ESOPHAGEAL REFLUX Assessment & Plan (03/26/2019 12:15 AM CDT): Currently the patient is on esomeprazole. Symptoms well controlled. We will continue with current medication. Assessment & Plan (01/03/2019 6:00 PM CDT): She was advised to continue with Nexium. Hepatic steatosis 02/27/2014 Overview (01/16/2017): ABN LIVER FUNCTION STUDY Assessment & Plan (12/25/2021 11:09 AM CDT): lft nl Assessment & Plan (07/14/2018 10:33 AM CDT): Alt l53 and 2 yrs ago 515. Stable and l ikely fatty Liver. If has gastric sleve and drop wt would ex Assessment & Plan (08/20/2017 2:46 PM FITNESS PROFESSIONAL): Nl and nl hep c. Benign hypertension 02/27/2014 Overview (01/16/2017): BENIGN HYPERTENSION Assessment & Plan (07/07/2025 10:22 AM CDT): Recommend DASH diet, heart healthy lifestyle, exercise. Discussed the risks of hypertension. Assessment & Plan (05/03/2025 12:55 PM CDT): Recommend DASH diet, heart healthy lifestyle, exercise. Discussed the risks of hypertension. Assessment & Plan (01/04/2025 2:20 PM CDT): Recommend DASH diet, heart healthy lifestyle, exercise. Discussed the risks of hypertension. Assessment & Plan (07/06/2024 7:49 AM CDT): Recommend DASH diet, heart healthy lifestyle, exercise. Discussed the risks of hypertension. Assessment & Plan (12/30/2023 7:44 AM CDT): Recommend DASH diet, heart healthy lifestyle, exercise. Discussed the risks of hypertension. Assessment & Plan (07/03/2023 7:58 AM CDT): Recommend DASH diet, heart healthy lifestyle, exercise. Discussed the risks of hypertension. Assessment & Plan (12/27/2022 12:27 PM CDT): Recommend DASH diet, heart-healthy lifestyle, exercise. Discussed the risks of hypertension. Assessment & Plan (06/28/2022 12:53 PM CDT): Recommend DASH diet, heart-healthy lifestyle, exercise. Discussed the risks of hypertension. Assessment & Plan (12/25/2021 11:04 AM CDT): The bp good and keep mes stable Hypertension, Medical treament revolves around weight control, salt management, and meds when necessary. long as weight loss is necessary and you are able to drop weight we can cont to monitor the blood pressure and not add meds. Once the weight is not changing then it becomes nesessary to add meds to be able to reach the goal bp. Assessment & Plan (09/21/2020 1:40 PM FITNESS PROFESSIONAL): bp acceptable and cont meds and dietHypertension, Medical treament revolves around weight control, salt management, and meds when necessary. long as weight loss is necessary and you are able to drop weight we can cont to monitor the blood pressure and not add meds. Once the weight is not changing then it becomes nesessary to add meds to be able to reach the goal bp. Assessment & Plan (05/02/2020 3:54 PM CDT): controledon medsHypertension, Medical treament revolves around weight control, salt management, and meds when necessary. long as weight loss is necessary and you are able to drop weight we can cont to monitor the blood pressure and not add meds. Once the weight is not changing then it becomes nesessary to add meds to be able to reach the goal bp. Assessment & Plan (09/21/2019 3:50 PM FITNESS PROFESSIONAL): The bp Good and no added medsHypertension, Medical treament revolves around weight control, salt management, and meds when necessary. long as weight loss is necessary and you are able to drop weight we can cont to monitor the blood pressure and not add meds. Once the weight is not changing then it becomes nesessary to add meds to be able to reach the goal bp. Assessment & Plan (01/19/2019 8:08 AM CDT): Recommend DASH diet, heart healthy lifestyle, exercise. Discussed the risks of hypertension. Assessment & Plan (07/14/2018 10:32 AM CDT): bp nl but with wt off and looking at a gastric sleeve. If see's wt coming off willl need bp moiotored as can seee need to drop the bp doseHypertension, Medical treament revolves around weight control, salt management, and meds when necessary. long as weight loss is necessary and you are able to drop weight we can cont to monitor the blood pressure and not add meds. Once the weight is not changing then it becomes nesessary to add meds to be able to reach the goal bp.setup o.f. 4-[address] gastric sleeve to recheck pbp and need to change and hoeplfully drop the dose Assessment & Plan (08/20/2017 2:45 PM FITNESS PROFESSIONAL): bp good adnno changesHypertension, Medical treament revolves around weight control, salt management, and meds when necessary. long as weight loss is necessary and you are able to drop weight we can cont to monitor the blood pressure and not add meds. Once the weight is not changing then it becomes nesessary to add meds to be able to reach the goal bp. Multiple-type hyperlipidemia 02/27/2014 Overview (01/17/2017): MIXED HYPERLIPIDEMIA Assessment & Plan (07/07/2025 10:23 AM CDT): Counseled on heart healthy diet exercise Assessment & Plan (01/04/2025 2:21 PM CDT): Counseled on heart healthy diet exercise Assessment & Plan (12/25/2021 11:05 AM CDT): ldl at 123 and low riskand leave meds sameYour cholesterol in the form of ldl (bad) cholesterol,hdl(good) cholesterol and triglycerides are monitored. The triglycerides respond to reduction/controll of your simple carbs/sugars In such items as sugared soda/sweet tea along with fruit juices(containing natural sugar) even if no added sugar is added. LDL cholesterol is reduced with reducing daily intake of fats and liza. saturated fats. The monosaturated fats like olive oil are not harmful except in the calories they contained. Whole milk cheese needs to be remembered along with whole milk products And limited. Assessment & Plan (09/21/2020 1:49 PM FITNESS PROFESSIONAL): ldl at 84 andgood.Your cholesterol in the form of ldl (bad) cholesterol,hdl(good) cholesterol and triglycerides are monitored. The triglycerides respond to reduction/controll of your simple carbs/sugars In such items as sugared soda/sweet tea along with fruit juices(containing natural sugar) even if no added sugar is added. LDL cholesterol is reduced with reducing daily intake of fats and liza. saturated fats. The monosaturated fats like olive oil are not harmful except in the calories they contained. Whole milk cheese needs to be remembered along with whole milk products And limited. Assessment & Plan (05/02/2020 3:52 PM CDT): ldl at 82 aned no changds in meds cont as doingYour cholesterol in the form of ldl (bad) cholesterol,hdl(good) cholesterol and triglycerides are monitored. The triglycerides respond to reduction/controll of your simple carbs/sugars In such items as sugared soda/sweet tea along with fruit juices(containing natural sugar) even if no added sugar is added. LDL cholesterol is reduced with reducing daily intake of fats and liza. saturated fats. The monosaturated fats like olive oil are not harmful except in the calories they contained. Whole milk cheese needs to be remembered along with whole milk products And limited. Assessment & Plan (09/21/2019 3:54 PM FITNESS PROFESSIONAL): ldl at 109 and watch diet and monitor Assessment & Plan (07/14/2018 10:32 AM CDT): ldl at 99 and less then 100 ideaol. No changesYour cholesterol in the form of ldl (bad) cholesterol,hdl(good) cholesterol and triglycerides are monitored. The triglycerides respond to reduction/controll of your simple carbs/sugars In such items as sugared soda/sweet tea along with fruit juices(containing natural sugar) even if no added sugar is added. LDL cholesterol is reduced with reducing daily intake of fats and liza. saturated fats. The monosaturated fats like olive oil are not harmful except in the calories they contained. Whole milk cheese needs to be remembered along with whole milk products And limited. Assessment & Plan (08/20/2017 2:46 PM FITNESS PROFESSIONAL): ldl at 108 and goodYour cholesterol in the form of ldl (bad) cholesterol,hdl(good) cholesterol and triglycerides are monitored. The triglycerides respond to reduction/controll of your simple carbs/sugars In such items as sugared soda/sweet tea along with fruit juices(containing natural sugar) even if no added sugar is added. LDL cholesterol is reduced with reducing daily intake of fats and liza. saturated fats. The monosaturated fats like olive oil are not harmful except in the calories they contained. Whole milk cheese needs to be remembered along with whole milk products And limited.. Fibrocystic breast changes 11/12/2012 Overview (01/18/2017): Fibrocystic breast Resolved Problems Problem Noted Date Diagnosed Date Resolved Date Screening for colon cancer 07/02/2023 0 07/03/2023 Bacterial conjunctivitis of both eyes 02/19/2023 07/03/2023 Assessment & Plan (02/19/2023 1:33 PM CDT): Ordered ofloxacin eye gtt's 0.3%- apply 1 to 2 drops to both eyes as directed Encouraged to call if no improvement or worsening Good hand hygiene- wash hands before and after touching eye, wash all bedding in hot water Encouraged to apply warm compress to both eye 3 to 4 times a day Upper respiratory tract infection 02/08/2023 07/03/2023 Assessment & Plan (02/08/2023 7:42 PM CDT): Ordered doxycycline 100 mg bid x 10 days Advised to hold cephalexin while taking doxycycline Educated on medications and side effects-avoid direct sunlight Abnormal result on screening urine test 09/21/2019 06/28/2022 Assessment & Plan (09/21/2019 3:52 PM FITNESS PROFESSIONAL): Recheck to confirm cleared. Acute cystitis with hematuria 06/12/2019 06/12/2019 Assessment & Plan (06/12/2019 11:42 AM CDT): Pt was advised increase fluids, genital hygiene, and frequent voiding to assist with clearance of infection. Prescribed cephalexin 500mg BID x 7 days. She was advised of side effects, dosage, and use of antibiotics Advised to call us if she does not hear back regarding the urine results in 2-3 business days, and will f/u with patient regarding results and need to change antimicrobial management. Tibia/fibula fracture, left, closed, initial encounter 05/02/2019 07/03/2023 Mild persistent asthma without complication 01/03/2019 12/25/2021 Assessment & Plan (01/03/2019 5:53 PM CDT): Exertional shortness of breath 01/03/2019 12/30/2023 Assessment & Plan (02/08/2023 7:53 PM CDT): Rest Albuterol inh as directed Ordered Montelukast 10 mg Educated on medication and side effects Follow up in 2 weeks if no improvement Assessment & Plan (03/26/2019 12:12 AM CDT): Etiology of exertional shortness of breath is multifactorial includin. Morbid obesity, 2. Physical deconditioning, PFT has shown no evidence of airway hyperreactivity. Weight management counseling was provided. Lifestyle change and diet modification were discussed with the patient in detail. Assessment & Plan (01/03/2019 5:57 PM CDT): Etiology of exertional shortness of breath is multifactorial includin. Morbid obesity, 2. Physical deconditioning, 3. Airway hyperreactivity, 4. Possible underlying cardiovascular disease. PFT and 6 min walk test were ordered. Morbid obesity with BMI of 4 5.0-49.9, adult ([facility]) 12/04/2017 07/03/2023 Assessment & Plan (12/27/2022 12:27 PM CDT): She was counseled on the importance of maintaining a healthy weight and the risks of obesity. Weight loss recommended. Assessment & Plan (06/28/2022 12:54 PM CDT): The patient was counseled on the importance of maintaining a healthy weight and the risks of obesity. Weight loss recommended. Assessment & Plan (06/03/2022 6:57 PM CDT): Encourage a weight loss program such as WW (Weight Watchers) incorporating dietary changes and aerobic / weight-bearing exercise at least 4-5 times per week, for at least 30-45 minute sessions. Assessment & Plan (12/25/2021 11:06 AM CDT): Morbid obesity is a bmi of 40 or more. Targeted weight loss with portion controll(calorie restriction) ,increased basal activity Levels along with adding an exercise program to lead to gradual weight loss,.Any program of change from weight watchers. To [employer] system along with others work. Assessment & Plan (09/21/2020 1:36 PM FITNESS PROFESSIONAL): Morbid obesity is a bmi of 40 or more. Targeted weight loss with portion controll(calorie restriction) ,increased basal activity Levels along with adding an exercise program to lead to gradual weight loss,.Any program of change from weight watchers. To nutra system along with others work. Assessment & Plan (05/02/2020 3:53 PM CDT): Morbid obesity is a bmi of 40 or more. Targeted weight loss with portion controll(calorie restriction) ,increased basal activity Levels along with adding an exercise program to lead to gradual weight loss,.Any program of change from weight watchers. To nutra system along with others work. Assessment & Plan (01/19/2019 8:10 AM CDT): The patient was counseled on the importance of maintaining a healthy weight and the risks of obesity. Weight loss recommended. Assessment & Plan (07/14/2018 10:22 AM CDT): Morbid obesity is a bmi of 40 or more. Targeted weight loss with portion controll(calorie restriction) ,increased basal activity Levels along with adding an exercise program to lead to gradual weight loss,.Any program of change from weight watchers. To nutra system along with others work. Assessment & Plan (12/04/2017 2:45 PM FITNESS PROFESSIONAL): Recommended patient to continue to increase heart healthy diet with adequate fruits, vegetables, and plenty of water along with mild-moderate daily exercise as tolerated. Morbid obesity 12/04/2017 09/21/2019 Acute URI 12/04/2017 07/14/2018 Assessment & Plan (12/04/2017 2:45 PM FITNESS PROFESSIONAL): Recommended amoxicillin 875 twice daily for full 10 day course and strongly encouraged her to continue on current allergy medications as well to assist with improved allergy control. Also recommended to take with food certainly some probiotics or Uzbek yogurt hesl-vbh-pmbjrrx as she did complain that she sometimes gets yeast infections from this which I preventatively and also sent over a 1 time dose of Diflucan if indicated. Certainly if symptoms persist or worsen regarding any sinus or chest congestion follow up in our office. I did recommend to use ProAir on a p.r.n. basis if needed for the bronchial spasms which is complaining of in certainly continue with Symbicort as previously prescribed for asthma maintenance Antibiotic-induced yeast infection 12/04/2017 07/14/2018 Assessment & Plan (12/04/2017 2:47 PM FITNESS PROFESSIONAL): Also recommended to take with food certainly some probiotics or Uzbek yogurt rioo-uvr-hohjxvg as she did complain that she sometimes gets yeast infections from this which I preventatively and also sent over a 1 time dose of Diflucan if indicated. Acute bronchitis due to othe r specified organisms 10/15/2017 12/04/2017 Assessment & Plan (10/15/2017 11:48 AM FITNESS PROFESSIONAL): Considering patient's already on tapering corticosteroids with little to no improvement in chest congestion, recommended antibiotic regimen to treat for atypical causes of acute bronchitis with doxycycline 100 mg twice daily for 10 day course as she does have an allergy to azithromycin. I advised her to follow up in our office regarding this condition some time next week to ensure the removing in the right direction. I also recommended Mucinex tepu-oue-laqxbjh with increase fluids to assist productivity of cough. Certainly if in the interim symptoms progress or they fail to improve with management to follow up in our office Morbid obesity 09/27/2017 12/04/2017 Influenza A 09/27/2017 12/04/2017 Assessment & Plan (09/27/2017 10:09 AM FITNESS PROFESSIONAL): Recommended Tamiflu to take b.i.d. for 5 days along with adequate fluids, rest, Mucinex to assist with productivity of cough, and rotating antipyretics as needed. Close monitoring of condition to ensure that does not developed into a viral pneumonia considering her asthma exacerbation due to the virus. Will see her here in a week regarding condition or certainly sooner if fevers or persisting beyond the next 1-2 days. BMI 40.0-44.9, adult 09/27/2017 020 Assessment & Plan (09/21/2019 3:50 PM FITNESS PROFESSIONAL): Morbid obesity is a bmi of 40 or more. Targeted weight loss with portion controll(calorie restriction) ,increased basal activity Levels along with adding an exercise program to lead to gradual weight loss,.Any program of change from weight watchers. To nutra system along with others work. Assessment & Plan (03/26/2019 12:16 AM CDT): Stable BMI. Weight management counseling was provided. Lifestyle change and diet modification were discussed with the patient in detail. Assessment & Plan (01/03/2019 6:01 PM CDT): Weight management counseling was provided for 10 min. Lifestyle change and diet modification were discussed with the patient in detail. Assessment & Plan (09/27/2017 10:00 AM FITNESS PROFESSIONAL): Recommended patient to continue to increase heart healthy diet with adequate fruits, vegetables, and plenty of water along with mild-moderate daily exercise as tolerated. Postprocedural state 03/08/2015 018 Overview (01/18/2017): Postprocedural state finding Abnormal glucose tolerance test (GTT) 02/27/2014 08/20/2017 Overview (01/17/2017): IMPAIRED ORAL GLUCSE NEVILLE Hyperparathyroidism 02/25/2013 07/06/20 24 Overview (01/16/2017): Hyperparathyroidism Assessment & Plan (01/02/2022 4:32 PM CDT): Primary hyperparathyroidism with history of calcium oxalate stones Patient underwent partial parathyroidectomy on 10/11/2021 - performed by Dr. Ghosh - recheck labs today Assessment & Plan (12/25/2021 11:08 AM CDT): Post op pth back to nl and seein endo next week Assessment & Plan (08/14/2021 4:04 PM CDT): Chronic problem, overall stable. Likely has mild primary HPTH. Will update BMP and PTH level and forward to Dr. Rios for next steps. Reviewed course and treatment of primary HPTH if indicated. Assessment & Plan (04/27/2021 4:17 PM CDT): Reviewed patient recent and past labs Intermittent mild hypercalcemia with elevated parathyroid hormone levels Suspect primary hyperparathyroidism +/- secondary hyperparathyroidism due to vitamin-D deficiency - patient has history of calcium oxalate renal stones Advise good oral calcium intake in diet atleast 4 servings a day Low oxalate diet Low salt diet Advise very good oral hydration Do labs - check vitamin-D 25 hydroxy levels and ionized calcium level Do 24 hour urine collection Get a bone density scan Follow up in 3 months Assessment & Plan (09/21/2020 1:47 PM FITNESS PROFESSIONAL): pth nl and check onreturn and nl calc Assessment & Plan (09/21/2019 3:53 PM FITNESS PROFESSIONAL): pth mildly up and monitor Assessment & Plan (07/14/2018 10:29 AM CDT): pth mild at 70 and nl 65 and les. So stable and calc nl and check yr'ly Assessment & Plan (08/20/2017 2:46 PM FITNESS PROFESSIONAL): Nl calcium at 10.3 and stay off calc and dairy Hypercholesterolemia 11/12/2012 017 Overview (01/16/2017): Hypercholesterolemia Hypertension 11/12/2012 08/20/2017 Overview (01/16/2017): Hypertension Depression 11/12/2012 08/20/2017 Overview (01/18/2017): Depression Encounters Date Type Department Care Team Description 08/02/[address] [facility] Primary [facility] at [address] [phone] Rodrigo Lockwood PA 07/14/2025 Orders Only [facility] [address] [place] [id number] Josh Mckeon MD Cervical vertebral fusion (Primary Dx) 07/14/2025 Orders Only [facility] [address] [place] [address] Josh Mckeon MD Neck pain (Primary Dx) 07/14/2025 Orders Only [facility] [address] [place] [id number] Mary Bustamante 07/09/[address] [facility] at [address] [phone] Rodrigo Lockwood PA 07/07/2025 1:45 PM CDT Office Visit [facility] at [address] [phone] Rodrigo Lockwood PA Benign hypertension (Primary Dx); Class 3 severe obesity due to excess calories with serious comorbidity and body mass index (BMI) of 40.0 to 44.9 in adult; Hepatic steatosis; Multiple-type hyperlipidemia; Vitamin D deficiency 07/01/2025 10:30 AM CDT Lab [facility] [address] [place] [address] PE (physical exam), annual; Benign hypertension; Multiple-type hyperlipidemia; IGT (impaired glucose tolerance); Abnormal liver function tests; Vitamin D deficiency 06/16/2025 Telephone [facility] [id number] [place] [address] [place] [address] Oneil Amor 05/26/2025 Orders Only [facility] Primary Care at [address] [phone] Rodrigo Lockwood PA 05/21/2025 11:15 [place] [address] Josh Mckeon MD Status post cervical spinal fusion [Z98.1] (Primary Dx) 05/21/2025 10:33 AM CDT - 05/21/2025 11:59 PM CDT Hospital Encounter [facility] [address] [place] [address] Josh Mckeon MD Status post cervical spinal fusion Discharge Disposition: Discharge to home or self care 05/19/2025 Telephone [address] [place] [address] Steve Reyna RN Appointment Reminder Call 05/03/2025 3:15 PM CDT Office Visit [facility] Primary Care at [address] [phone] Rodrigo Lockwood PA Mild intermittent asthma with acute exacerbation (Primary Dx); Benign hypertension; Class 3 severe obesity due to excess calories with serious comorbidity and body mass index (BMI) of 40.0 to 44.9 in adult 05/03/[address] [facility] Primary Care at [address] [phone] Rodrigo Lockwood PA from Last 3 Months Immunizations Immunization Administration Dates Next Due Hep B Vaccine 03/01/2000 Influenza, Quadrivalent, Spl it, Preservative Free, Intradermal 08/16/2016,10/19/2015 Influenza, Quadrivalent, Spl it, Preservative Free, Intramuscular 07/03/2023,06/28/2022,08/03/2021,09/21,09/09/2019,07/14/2018 Influenza, Split 08/05/2012,08/30/2010 Influenza, Trivalent, IM (MDV) 07/20/2009 Influenza, Trivalent, Preser vative Free, Intramuscular 07/06/2024 Influenza, Unspecified 02/19/2023(Deferred: Debbie ent Refused) Pfizer SARS-CoV-2 Monovalent Vaccination (12+ Yrs) PURPLE 02/22/2021,02/01/2021 Pneumococcal Conjugate PCV 13 07/14/2018 Pneumococcal Polysaccharide PPV23 08/16/2016 Td, adsorbed 12/27/2022 Tdap 10/01/2011 ZOSTER Recombinant 07/06/2024,12/30/2023 Surgical History Surgery Date Site/Laterality Comments MENISCUS SURGERY 10/14/2012 - 10/13/2013 Right Meniscus surgery TOTAL KNEE ARTHROPLASTY 10/14/2015 - 10/13/2016 Right ANKLE FRACTURE SURGERY 10/14/2018 - 10/13/2019 Left BLADDER SUSPENSION 10/14/2005 - 10/13/2006 Urinary incontinence: bladder sling VAGINAL HYSTERECTOMY 10/14/1993 - 10/13/1994 Adenocarcinoma of the cervix: partialTVH CHOLECYSTECTOMY 10/14/1997 - 10/13/1998 Cholelithiasis: cholecystectomy LUMBAR LAMINECTOMY 10/14/2003 - 10/13/2004 L4-5 KIDNEY STONE SURGERY 11/14/2020 - 12/11/2020 Left COLONOSCOPY 2010s UPPER GASTROINTESTINAL ENDOSCOPY 2009s FRACTURE SURGERY HYSTERECTOMY SPINE SURGERY COLONOSCOPY 05/14/2013 - 06/13/2013 PARATHYROIDECTOMY 10/14/2020 - 10/13/2021 COLONOSCOPY 08/23/2023 Medical History Medical History Date Comments Hyperlipidemia Depression Hypertension Dxd Gastroesophageal reflux disease GERD Arthritis Cholelithiasis 1997 Cholelithiasis Hypercholesterolemia High choles terol; Comments: CCB 03/08/2015 - Adiposity Obesity Spinal stenosis History of cervical cancer Cervi esau adenocarcinoma s/p conization and subsequent hysterectomy 1993 Sleep apnea Per pt, h/o +sle ep study early with negative repeat study 2009 after weight loss DDD (degenerative disc disease), lumbar 2002 compressed disc History of vertigo amh e/r 2012 vertigo History of recurrent UTI (ur inary tract infection) Last UTI 02/2021; Kidney Infe ction 01/2011; Comments: [facility] ER Seasonal allergies Seasonal darlene rgies PONV (postoperative nausea and vomiting) Scopolamine patch effective in past History of urinary incontinence 2005 Urinary incontinence History of back pain 2003 Back proble m Cancer (HCC) 1993 Kidney stone IGT (impaired glucose tolerance) Sciatica Lumbar post-laminectomy syndrome OA (osteoarthritis) DDD (degenerative disc disease), lumbar lumbar L4-5 bulging with Modic changes Degenerative lumbar spinal stenosis Mild asthma Cervical spondylosis with myelopathy Family History Medical History Relation Name Comments Other Brother 2 Alive and well; Arthritis Father Vic messina Other Father Vic messina ; cancer-bladder/prostate high blood pressure depression/Cancer, bladder & prostate; Cause of : Cancer, bladder & prostate Lung cancer Maternal Grandfather Cancer, lung; Cause of : Cancer, lung Breast cancer Mother Mary linares Cancer, breast; /Cancer, breast; Cancer Mother Mary linares Heart disease Mother Mary linares Other Mother Mary linares Alive and well; Thyroid cancer Niece Other Other 1 Family history of Cancer, bladder; Colon cancer Other 2 Family history of Cancer, colon; Anesthesia problems Neg Hx Ovarian cancer Neg Hx Relation Name Status Comments Brother 1 Alive Brother 2 Father Vic messina Maternal Grandfather Mother Mary linares Alive Niece Other 1 Other 2 Social History Tobacco Use Types Packs/Day Years Used Date Smoking Tobacco: Never Smokeless Tobacco: Never Tobacco Cessation:Counseling Given: Not Answered Alcohol Use Standard Drinks/Week Comments Yes 0 (1 standard drink = 0.6 oz pur e alcohol) [facility] Utilities Answer Date Recorded In the past 12 months has [employer], [employer], oil, or water [employer] threatened to shut off services in your [...] week 11/25/2024 How often do you attend [employer] [facility] or temple services? 1 to 4 times per year 11/25/2024 Do you belong to any clubs o r organizations such as amish groups, unions, fraternal or athletic groups, or [...] any time in the past 12 m [facility], were you homeless or living in a jail (including now)? 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 on file Not on file Not o n file Obstetrics History Para Term AB IAB SAB Ectopic Multiple Livin g Live Births 2 2 2 2 2 Date Outcome GA Total Labor Labor/2nd/3rd Weight Sex Type Anes PTL Estee A1 A5 Name Clin 9 Term 3.43 kg (7 lb 9 oz) Vag-S pont Living 1 Term 3.26 kg (7 lb 3 oz) Vag-S pont Living Last Filed Vital Signs Vital Sign Reading Time Taken Comments Blood Pressure 122/74 07/07/2025 1:50 PM CDT Pulse 75 07/07/2025 1:50 PM CDT Temperature 37.1 C (98.7 F) 07/07/2025 1:50 PM CDT Respiratory Rate 16 07/07/2025 1:50 PM CDT Oxygen Saturation 97% 07/07/2025 1:50 PM CDT Inhaled Oxygen Concentration - - Weight 124.6 kg (274 lb 9.6 oz) 07/07/2025 1:50 PM CDT Height 175.3 cm (5' 9) 07/07/2025 1:50 PM CDT Body Mass Index 40.55 07/07/2025 1:50 PM CDT Plan of Treatment Health Maintenance Due Date Last Done Comments Covid-19 Vaccine ( season) 2025 10/26/2021, 02/22/2021, 02/01/2021 Influenza Vaccine (#1) 2025 , 07/03/2023, 06/28/2022, Additional history exists Regular Well Visit/Exam 18-64 01/05/2026 01/05/2025, 12/30/2023, 12/27/2022, Additional history exists Breast Cancer Screening-Mammogram 03/31/2026 03/31/2025, 07/03/2023, 06/25/2022, Additional history exists Depression Screening 07/07/2026 07/07/2025, 05/03/2025, 04/19/2025, Additional history exists Osteoporosis Screening-Bone Density Scan 11/03/2027 11/03/2024, 05/23/2021 Colon Cancer Screening-Colonoscopy 08/23/2028 08/23/2023, 05/22/2013 Pneumococcal vaccine <65 (3 of 3 - PCV20 or PCV21) 2029 07/14/2018, 08/16/2016 Postponed f rom 07/14/2023 (Provider's clinical decision) DTaP/Tdap/Td Vaccine (3 - Td or Tdap) 12/27/2032 12/27/2022, 10/01/2011 Cervical Cancer Screening Discontinued 11/12/2012, Colon Cancer Screening-CT Colonography Discontinued 08/23/2023, 05/22/2013 Colon Cancer Screening-DNA Stool Discontinued 08/23/2023, 05/22/2013 Colon Cancer Screening-FIT Discontinued 08/23/2023, Colon Cancer Screening-Sigmoidoscopy Discontinued 08/23/2023, 05/22/2013 Zoster Vaccine Completed 07/06/2024, 12/30/2023 Hepatitis C Screening Completed 07/01/2025, 017 Medical Devices Implanted Type Area Skidder Lever Operator Device Identifier Shelf Expiration Date Model / Serial / Lot [employer]/Rich[employer]/O rtho [id number] Radha-Loc Vlp 107mm 7 Hole Locking Left Lateral Distal Fibular - [id number] Implanted:Qty: 1 on 05/02/2019 by Eladio Vega MD at [facility] Left: Ankle [employer] rtho [id number] / / [employer]/O rtho [id number] Radha-Loc Vlp 3.5mm 12mm Self Tap Lock Foot Fibula Cortical Screw - [id number] Implanted:Qty: 2 on 05/02/2019 by Eladio Vega MD at [facility] Left: Ankle [employer] rtho [id number] / / [employer]/O rtho [id number] Radha-Loc Vlp 3.5mm 14mm Self Tap Lock Foot Fibula Cortical Screw - [id number] Implanted:Qty: 3 on 05/02/2019 by Eladio Vega MD at [facility] Left: Ankle [employer] rtho [id number] / / [employer] rtho [id number] Radha-Loc Vlp 3.5mm 20mm Self Tap Foot Cortical Hexagon Low - [id number] Implanted:Qty: 1 on 05/02/2019 by Eladio Vega MD at [facility] Left: Ankle [employer] rtho [id number] / / [employer]/O rtho [id number] Radha-Loc Vlp 3.5mm 14mm Self Tap Foot Cortical Hexagon Low - [id number] Implanted:Qty: 1 on 05/02/2019 by Eladio Vega MD at [facility] Left: Ankle [employer] rtho [id number] / / [employer] r[employer]o [id number] Radha-Loc Vlp 3.5mm 14mm Self Tap Foot Cortical Hexagon Low - [id number] Implanted:Qty: 1 on 05/02/2019 by Eladio Vega MD at [facility] Left: Ankle [employer] rtho [id number] / / [employer] rtho [id number] Radha-Loc Vlp 3.5mm 48mm Self Tap Foot Cortical Hexagon Low - [id number] Implanted:Qty: 1 on 05/02/2019 by Eladio Vega MD at [facility] Left: Ankle [employer] rtho [id number] / / [employer]/O rtho [id number] Radha-Loc Vlp 3.5mm 55mm Self Tap Foot Cortical Hexagon Low - [id number] Implanted:Qty: 1 on 05/02/2019 by Eladio Vega MD at [facility] Left: Ankle [employer] rtho [id number] / / [employer]/O rtho [id number] Radha-Loc 4mm 6mm 48mm 15mm Self Tap Cannulated Trocar Low Profile - [id number] Implanted:Qty: 2 on 05/02/2019 by Eladio Vega MD at [facility] Left: Ankle [employer]/O rtho [id number] / / Med[employer] Graft Bone Filler Inj Rolette 3cc Putty [id number] - [id number] - [id number] Implanted:Qty: 1 on 11/24/2024 by Josh Mckeon MD at [facility] N/A: Spine Cervical Med[employer] Inc 06/01/2026 [id number] / [id number] / Med[employer]onic Inc Cage Spn Med 6d Acif Endoskeleton Tcs Nanolock [id number] 8572-9712-N - [id number] Implanted:Qty: 1 on 11/24/2024 by Josh Mckeon MD at [facility] N/A: Spine Cervical Med[employer]onic Inc 02/12/2029 [id number] / / [id number] Cerapedics Inc Allograft Bone Putty 2.5cc 700-025 - [id number] Implanted:Qty: 1 on 11/24/2024 by Josh Mckeon MD at [facility] N/A: Spine Cervical [employer] [id number] 02/10/2027 700-025 / / [id number] Medtronic Inc Cage Spn Med 6d Acif Endoskeleton Tcs Nanolock [id number] 0467-7901-N - [id number] Implanted:Qty: 1 on 11/24/2024 by Josh Mckeon MD at [facility] N/A: Spine Cervical Med[employer] Inc 06/25/2029 [id number] N / / [id number] Medtronic Inc Screw Spinal Anterior Cervical Self Drilling Solid Zevo 3.5x15mm Titanium [id number] - [id number] Implanted:Qty: 5 on 11/24/2024 by Josh Mckeon MD at [facility] N/A: Spine Cervical Med[employer]onic Inc [id number] / / Med[employer]onic Inc Zevo 35mm 2 Level Spine Cervical Anterior Plate Bone Titanium [id number] - [id number] Implanted:Qty: 1 on 11/24/2024 by Josh Mckeon MD at [facility] N/A: Spine Cervical Med[employer]onic Inc [id number] / / Med[employer] Inc Screw Spinal Anterior Cervical Self Drilling Solid Zevo 4.0x17mm Titanium [id number] - [id number] Implanted:Qty: 1 on 11/24/2024 by Josh Mckeon MD at [facility] N/A: Spine Cervical Med[employer]onic Inc [id number] / / Explanted Type Area Skidder Lever Operator Device Identifier Shelf Expiration Date Model / Serial / Lot Stent Ureteral 6fr 24cm Taper Pusher Fluoro Marker - [id number] Implanted:Qty : 1 on 11/29/2020 by Rommel Woodson MD at [facility] Explanted:Qty : 1 on 01/27/2021 by Referral, Self Left: Ureter [facility] [id number] 02/19/2024 [id number] / / [id number] Procedures Procedure Name Priority Date/Time Associated Diagnosis Comments EGFR Routine 07/01/2025 10:39 AM CDT PE (physical exam), annual Benign hypertension Multiple-type hyperlipidemia IGT (impaired glucose tolerance) Abnormal liver function tests VITAMIN D 25 HYDROXY Routine 07/01/2025 10:39 AM CDT Vitamin D deficiency HEMOGLOBIN A1C Routine 07/01/2025 10:39 AM CDT PE (physical exam), annual Benign hypertension Multiple-type hyperlipidemia IGT (impaired glucose tolerance) LIPID PANEL Routine 07/01/2025 10:39 AM CDT PE (physical exam), annual Benign hypertension Multiple-type hyperlipidemia IGT (impaired glucose tolerance) COMPREHENSIVE METABOLIC PANEL Routine 07/01/2025 10:39 AM CDT PE (physical exam), annual Benign hypertension Multiple-type hyperlipidemia IGT (impaired glucose tolerance) Abnormal liver function tests HEPATITIS PANEL, ACUTE Routine 07/01/2025 10:39 AM CDT PE (physical exam), annual Benign hypertension Multiple-type hyperlipidemia IGT (impaired glucose tolerance) Abnormal liver function tests XR SPINE CERVICAL 2 OR 3 VIEWS Schedule Routine, Read Routine (OP Routine) 05/21/2025 10:42 AM CDT Status post cervical spinal fusion SCREENING MAMMOGRAM BILATERAL W MONO Schedule Routine, Read Routine (OP Routine) 03/31/2025 9:54 AM CDT Breast cancer screening by mammogram DEXA AXIAL SKELETON BONE DENSITY 1 OR MORE SITES Schedule Routine, Read Routine (OP Routine) 11/03/2024 1:23 PM FITNESS PROFESSIONAL Postmenopausal COLONOSCOPY 08/23/2023 8:00 AM FITNESS PROFESSIONAL THINPAP, REFLEX HPV ALL PTH Routine 11/12/2012 9:38 AM FITNESS PROFESSIONAL from Last 3 Months or Most Recently Relevant to Health Maintenance Results * eGFR (07/01/2025 10:39 AM CDT) eGFR >90 >=60 mL/min/1. 73 m2 Comment: Interpretive Data Reference Interval Normal >/= 90 mL/min/1.73m2 Mildly decreased* 60 - 89 mL/min/1.73m2 Mildly to moderately decreased 45 - 59 mL/min/1.73m2 Moderately to severely decreased 30 - 44 mL/min/1.73m2 Severely decreased 15 - 29 mL/min/1.73m2 Kidney Failure < 15 mL/min/1.73m2 *Relative to young adult level Estimated glomerular filtration rate is determined by the 2020 CKD-EPI equation recommended by the National Kidney Foundation (A Unifying Approach to GFR Estimation: Recommendations of the NKF-ASK Task Force on Reassessing the Inclusion of Race in Diagnosing Kidney Disease, JASN 2020). The CKD-EPI equation should not be used for patients with unstable renal function and has not been validated in children and those over 70. Current interpretive data was last reviewed 2021. Blood 07/01/2025 10:3 9 AM CDT 07/01/2025 11:38 AM CDT Rodrigo VALDES LAB BLOOD ORDERABLES Fi nal Result J CARLOS SANCHEZ (NADER) 1 [facility] [place] [address] * Hepatitis panel, acute Blood (07/01/2025 10:39 AM CDT) Hep A IgM Nonreactive Nonreactive Comment: Interpretive Data: If Hep A IgM Ab is reported as Equivocal, a new sample should be drawn in two weeks for testing. Current interpretive data was last revised on 19. Testing performed by: [facility] [facility], [address] [place] [address]., [id number] Hep B core IgM Nonreactive Nonreactive Diana SANCHEZ (NADER) Comment: Interpretive Data If HepB Core IgM Ab is reported as Equivocal, a new sample should be drawn in two weeks for testing. Current interpretive data was last revised on 19. Testing performed by: [facility], [address] [place] [address]., [id number] Hep C Ab Nonreactive Nonreactive J CARLOS SANCHEZ (NADER) Comment: Interpretive Data Nonreactive: Antibodies to HCV not detected. Does NOT exclude the possibility of recent exposure to HCV. Equivocal: Equivocal for HCV antibodies. Supplemental molecular testing will be automatically performed to determine infection status in accordance with current CDC screening recommendations. Reactive: Positive for HCV antibodies. This may represent current or past HCV infection. Supplemental molecular testing will be automatically performed to determine current infection status in accordance with current CDC screening recommendations. Interpretive data was last revised on 2019. Testing performed by: [facility], [address] [place] [address]., [id number] HepBsAg Nonreactive Nonreactive J CARLOS SANCHEZ (NADER) Comment:Testing performed by : [address] [address] Blood 07/01/2025 10:3 9 AM CDT 07/01/2025 2:41 PM CDT us Rodrigo [facility] MICROBIOLOGY - GENE RAL ORDERABLES Final Result J CARLOS SANCHEZ ([place]) 1 [facility] [place] [address] * Vitamin D 25 hydroxy (07/01/2025 10:39 AM CDT) Vitamin D 25-OH 45 30 - 80 ng/mL KENDRICKMARIYA [facility] ([place]) Blood 07/01/2025 10:3 9 AM CDT 07/01/2025 11:38 AM CDT us Rodrigo [facility] BLOOD ORDERABLES Fi nal Result Performing Organization Address [facility]/ZIP Co de Phone Number J CARLOS SANCHEZ ([place]) 1 [place] [address] * Hemoglobin A1c (07/01/2025 10:39 AM CDT) Hgb A1C 5.6 4.0 - 5.6 % J CARLOS [facility] ([place]) Estimated Average Glucose 114 mg/dL [facility] ([place]) Comment: The ADA recommends reporting an estimated Average Glucose (eAG) with all Hemoglobin A1c results using the equation derived from a study of 507 normal and diabetic adults. Minority populations were underrepresented and children were not included. (Diabetes Care 31:8548-3413, 2008). The eAG is not equivalent to a fasting glucose. Testing performed by: [facility], [address] [facility], [place], [address] Blood 07/01/2025 10:3 9 AM CDT 07/01/2025 11:38 AM CDT us Rodrigo [facility] BLOOD ORDERABLES Fi nal Result Performing Organization Address City/[facility]/ZIP Co de Phone Number J CARLOS SANCHEZ ([place]) 1 [facility] [place] [address] * (ABNORMAL) Lipid panel (07/01/2025 10:39 AM CDT) Cholesterol 179 30 - 199 mg/dL J CARLOS SANCHEZ (NADER) Comment: Interpretive Data Ages < or = 19 years Acceptable: <170 mg/dL Borderline high: 170-199 mg/dL High: >or= 200 mg/dL Ages > or = 20 years Desirable: <200 mg/dL Borderline high: 200-239 mg/dL High: >or= 240 mg/dL Literature References: 1. Expert Panel on Integrated Guidelines for Cardiovascular Health and Risk Reduction in Children and Adolescents. Pediatrics 2011;128:S213 2. NCEP Expert Panel. Circulation 2004;110:227 Current Interpretive Data was last revised on 2018. Triglycerides 151(H) <=149 mg/dL J CARLOS SANCHEZ (NADER) Comment: Interpretive Data Ages < or = 9 years Acceptable: <75 mg/dL Borderline high: 75-99 mg/dL High: >or= 100 mg/dL Ages 10 to 20 years Acceptable: <90 mg/dL Borderline high: 90-129 mg/dL High: >or= 130 mg/dL Ages > or = 20 years Desirable: <150 mg/dL Borderline high: 150-199 mg/dL High: 200-499 mg/dL Very high: >or= 499 mg/dL Literature References: 1. Expert Panel on Integrated Guidelines for Cardiovascular Health and Risk Reduction in Children and Adolescents. Pediatrics 2011;128:S213 2. NCEP Expert Panel. Circulation 2004;110:227 Current Interpretive Data was last revised on 2018. HDL 66 >=40 mg/dL J CARLOS SANCHEZ (NADER) Comment: Interpretive Data Ages < or = 19 years Acceptable: >45 mg/dL Borderline low: 40-45 mg/dL Low: <40 mg/dL Ages > or = 20 years Desirable: >or= 60 mg/dL Low: <40 mg/dL Literature References: 1. Expert Panel on Integrated Guidelines for Cardiovascular Health and Risk Reduction in Children and Adolescents. Pediatrics 2011;128:S213 2. NCEP Expert Panel. Circulation 2004;110:227 Current Interpretive Data was last revised on 2018. LDL, calculated 87 <=129 mg/dL J CARLOS SANCHEZ (NADER) Comment: Interpretive Data Ages < or = 19 years Acceptable: <110 mg/dL Borderline high: 110-129 mg/dL High: >or= 130 mg/dL Ages > or = 20 years Optimal: <100 mg/dL Near optimal: 100-129 mg/dL Borderline high: 130-159 mg/dL High: >160 mg/dL Calculated using the Tha LDL-C estimating equation. This equation was implemented on 2024. Prior to this date LDL-C was estimated using the Friedewald equation. Literature References: 1. Expert Panel on Integrated Guidelines for Cardiovascular Health and Risk Reduction in Children and Adolescents. Pediatrics 2011;128:S213 2. NCEP Expert Panel. Circulation 2004;110:227 3. Tha Freitas et al. KATHRYN Cardiol. 2020 February 11;5(5):540-548. doi: 10.1001/[email or web address] Current Interpretive Data was last revised on 2024. Testing performed by: [place], [address] Non-HDL Cholesterol 113 mg/dL J CARLOS SANCHEZ ([place]) Comment: Interpretive Data Ages < or = 19 years Acceptable: <120 mg/dL Borderline high: 120-144 mg/dL High: >145 mg/dL Ages > or = 20 years When triglycerides are >200 mg/dL, Non-HDL cholesterol is a secondary target of therapy with treatment goals that are 30 mg/dL greater than the LDL cholesterol target. Literature References: 1. Expert Panel on Integrated Guidelines for Cardiovascular Health and Risk Reduction in Children and Adolescents. Pediatrics 2011;128:S213 2. NCEP Expert Panel. Circulation 2004;110:227 Current Interpretive Data was last revised on 2018. Testing performed by: [place], [address] Chol/HDL ratio 3 KRISTI SANCHEZ (NADER) Comment:Testing performed by : [place], [address] Blood 07/01/2025 10:3 9 AM CDT 07/01/2025 11:38 AM CDT us Rodrigo [facility] BLOOD ORDERABLES Fi nal Result J CARLOS SANCHEZ ([place]) 1 [facility] [place] [address] * Comprehensive metabolic panel (07/01/2025 10:39 AM CDT) Sodium 141 135 - 145 mmol/L [facility] (NADER) Potassium, pl 4.2 3.3 - 4.9 mmol/L [facility] (NADER) Chloride 106 97 - 110 mmol/L [facility] (NADER) CO2 24 22 - 32 mmol/L [facility] (NADER) Anion gap 11 2 - 15 mmol/L [facility] (NADER) BUN 13 6 - 25 mg/dL [facility] (NADER) Creatinine 0.65 0.60 - 1.10 mg/dL [facility] (NADER) Glucose 80 70 - 199 mg/dL [facility] (NADER) Comment: Interpretive Data Fasting glucose >/= 126 mg/dl is diagnostic for diabetes. Fasting is defined as no caloric intake for at least 8 hours. Fasting glucose between 100 mg/dl to 125 mg/dl is diagnostic of prediabetes. In a patient with classic symptoms of hyperglycemia or hyperglycemic crisis, a random glucose >/= 200 mg/dl is diagnostic for diabetes. In the absence of unequivocal hyperglycemia, results should be confirmed by repeat testing. The classification and Diagnosis of Diabetes Diabetes Care 2021; 46: S19-S40. Current interpretive data was last revised 2022. Calcium 9.4 8.5 - 10.3 mg/dL [facility] (NADER) Bilirubin, total 0.4 0.1 - 1.2 mg/dL [facility] (NADER) Protein, pl 6.5 6.5 - 8.5 g/dL [facility] (NADER) Albumin 4.1 3.5 - 5.0 g/dL [facility] (NADER) Alk phos 121 40 - 130 Units/L [facility] (NADER) ALT 32 7 - 45 Units/L [facility] (NADER) AST 29 10 - 45 Units/L [facility] (NADER) Blood 07/01/2025 10:3 9 AM CDT 07/01/2025 11:38 AM CDT Rodrigo [facility] BLOOD ORDERABLES nal Result [facility] [place] 1 [facility] [place] [address] * XR Spine Cervical 2 or 3 Views (05/21/2025 10:42 AM CDT) Anatomical Region Laterality Modality Spine N/A Computed Radiogr aphy 05/21/2025 2:15 PM CDT Impressions 05/21/2025 2:15 PM CDT No change since the last study. Electronically signed by: Dhaval Jones M.D. Narrative 05/21/2025 2:15 PM CDT EXAMINATION: XR SPINE CERVICAL 2 OR 3 VIEWS HISTORY: The patient is a 60-year-old female who has had a prior cervical fusion. Comparison is made with the previous study dated 02/19/2025. TECHNIQUE: 3 views. FINDINGS: Alignment normal and no fracture or dislocation is seen. Anterior fusion is seen from the C4-C6 levels inclusive with disc spacers at these levels. No evidence of loosening. No prevertebral soft tissue swelling. The visualized disc spaces, facet joints and neurocentral joints are grossly normal. Procedure Note Dhaval Jones MD - 05/21/2025 EXAMINATION: XR SPINE CERVICAL 2 OR 3 VIEWS HISTORY: The patient is a 60-year-old female who has had a prior cervical fusion. Comparison is made with the previous study dated 02/19/2025. TECHNIQUE: 3 views. FINDINGS: Alignment normal and no fracture or dislocation is seen. Anterior fusion is seen from the C4-C6 levels inclusive with disc spacers at these levels. No evidence of loosening. No prevertebral soft tissue swelling. The visualized disc spaces, facet joints and neurocentral joints are grossly normal. IMPRESSION: No change since the last study. Electronically signed by: Dhaval Jones M.D. Josh Mckeon MD IMG XR PROCEDURES Final Resul t * Screening Mammogram Bilateral W Mono (03/31/2025 9:54 AM CDT) Anatomical Region Laterality Modality Breast Bilateral Mammography Impressions 04/01/2025 6:54 PM CDT Bilateral No evidence of malignancy in either breast. OVERALL BI-RADS FINAL ASSESSMENT: 1 - Negative RECOMMENDATION: Recommend bilateral annual screening mammography. Narrative 04/01/2025 6:54 PM CDT EXAMINATION: Screening Mammogram Bilateral W Mono: 03/31/2025 COMPARISON: Relevant prior studies available at the time of interpretation were reviewed. TECHNIQUE: Mammography was performed with 2D and digital breast tomosynthesis (DBT) images. CAD was utilized. BREAST PARENCHYMAL COMPOSITION: There are scattered areas of fibroglandular density. FINDINGS: Bilateral There is no suspicious mass, calcification, or architectural distortion in either breast. us Rodrigo VALDES IMG MAMMO PROCEDURES Fi nal Result * Dexa Axial Skeleton Bone Density 1 or 2 Site (11/03/2024 1:23 PM FITNESS PROFESSIONAL) Anatomical Region Laterality Modality Body N/A Other 11/03/2024 3:05 PM FITNESS PROFESSIONAL Impressions 11/03/2024 3:05 PM FITNESS PROFESSIONAL Normal bone mineral density of lumbar spine at L1-L4, total left hip and left femoral neck. Electronically signed by: Imer Aldrich II, D.O. Narrative 11/03/2024 3:05 PM FITNESS PROFESSIONAL Examination: Bone densitometry of the lumbar spine and the left hip History: Osteoporosis screening. Comparison: 05/23/2021. Findings: The bone densitometry of the L1-L4 region, the left femoral neck and the total left hip was calculated using dual-energy x-ray absorptiometry. Menopausal status: Post menopausal Summary: Bone mineral density (BMD) of the lumbar spine (L1-4): T-score 2.3; previously 1.7 Bone mineral density (BMD) of the left femoral neck: T-score -1.0; previously -0.1 Bone mineral density (BMD) of the total left hip: T-score 1.0; previously 1.0 Procedure Note Imer Aldrich II, DO - 11/03/2024 Examination: Bone densitometry of the lumbar spine and the left hip History: Osteoporosis screening. Comparison: 05/23/2021. Findings: The bone densitometry of the L1-L4 region, the left femoral neck and the total left hip was calculated using dual-energy x-ray absorptiometry. Menopausal status: Post menopausal Summary: Bone mineral density (BMD) of the lumbar spine (L1-4): T-score 2.3; previously 1.7 Bone mineral density (BMD) of the left femoral neck: T-score -1.0; previously -0.1 Bone mineral density (BMD) of the total left hip: T-score 1.0; previously 1.0 IMPRESSION: Normal bone mineral density of lumbar spine at L1-L4, total left hip and left femoral neck. Electronically signed by: Imer Aldrich II, D.O. us Rodrigo VALDES [facility] DXA PROCEDURES Neena l Result * COLONOSCOPY (08/23/2023 8:00 AM FITNESS PROFESSIONAL) Anatomical Region Laterality Modality Other Narrative Procedure Note Imer Maldonado MD - 08/23/2023 8:00 AM CST [facility] Patient Name: Jeison Hodges Procedure Date: 08/23/2023 8:00 AM Date of : 1965 Admit Type: Outpatient Age: 58 Gender: Female Attending MD: Imer Maldonado M.D. Room: [facility] ENDOSCOPY ROOM 2 Note Status: Finalized Patient Profile: Refer to note in patient chart for documentation of history and physical. Procedure: Colonoscopy Indications: Screening for colorectal malignant neoplasm, Last colonoscopy: May 2013 Referring MD: Rodrigo Lockwood PA-C Providers: Imer Maldonaod M.D. Impression: - Hemorrhoids found on perianal exam. - Two 2 to 3 mm polyps in the rectum, removed witha jumbo cold forceps. Resected and retrieved. - Diverticulosis in the sigmoid colon and in the descending colon. - The examination was otherwise normal. Recommendation: - Discharge patient to home. - Resume previous diet. - Continue present medications. - Await pathology results. - Repeat colonoscopy in 10 years [facility]. - Return to primary care physician as previously scheduled. Medicines: Propofol per Anesthesia Complications: No immediate complications. Estimated Blood Loss: Estimated blood loss: none. Procedure: Pre-Anesthesia Assessment: - This assessment was completed [Time ofAssessment] prior to the administration of sedation. The benefits, risks and alternatives of theprocedure and sedation were discussed and informed consentwas obtained. All questions were answered. Please referto the signed informed consent document in the medical record. The bowel preparation used was Miralax and bisacodyl tablets via split dose instruction. The scope was passed under direct vision. TheColonoscope [id number] was introduced through the anus and advanced to the the cecum, identified by appendiceal orifice and ileocecal valve. The colonoscopy was performed without difficulty. The patient tolerated the procedure well. The qualityof the bowel preparation was excellent. The ileocecal valve, appendiceal orifice, and rectum were photographed. Findings: Hemorrhoids were found on perianal exam. Two sessile polyps were found in the rectum. The polyps were 2 to 3mm in size. These polyps were removed with a jumbo cold forceps.Resection and retrieval were complete. Verification of patient identificationfor the specimen was done by the physician and nurse using the patient's name and date. Estimated blood loss was minimal. Multiple small and large-mouthed diverticula were found in thesigmoid colon and descending colon. The exam was otherwise without abnormality. Electronically signed by Imer Maldonado M.D. Imer Maldonado M.D. 08/23/2023 10:06:37 AM Number of Addenda: 0 Note Initiated On: 08/23/2023 8:00 AM Procedure Code(s): --- Professional --- 43889, Colonoscopy, flexible; with biopsy, single or multiple --- Technical --- 94137, Colonoscopy, flexible; with biopsy, single or multiple Diagnosis Code(s): --- Professional --- K57.30, Diverticulosis of large intestine without perforation orabscess without bleeding D12.8, Benign neoplasm of rectum K64.9, Unspecified hemorrhoids Z12.11, Encounter for screening for malignant neoplasm of colon --- Technical --- K57.30, Diverticulosis of large intestine without perforation orabscess without bleeding D12.8, Benign neoplasm of rectum K64.9, Unspecified hemorrhoids Z12.11, Encounter for screening for malignant neoplasm of colon CPT copyright 2020 [place] [employer]. All rights reserved. The codes documented in this report are preliminary and upon poultryman reviewmay be revised to meet current compliance requirements. Recognized by the [place] [employer] for promoting quality in endoscopy Imer Maldonado MD ENDOSCOPY PROCEDURES Final Re sult * ThinPrep Pap, Reflex HPV all pth (11/12/2012 9:38 AM FITNESS PROFESSIONAL) SOURCE: SEE NOTE [facility] HISTORICAL RESULTS Comment:Vagina CLINICAL INFORMATION: SEE NOTE [facility]OR[facility] RESULTS Comment: Normal exam Hysterectomy, total LMP SEE NOTE [facility]ISTORICAL RESULTS Comment:1993 Previous Pap SEE NOTE [facility]ORICAL RESULTS Comment:08/20/11 Prev. Bx SEE NOTE [facility]OR[facility] RESULTS Comment:INFORMATION NOT PROV IDED Pap, specimen adequacy SEE NOTE [facility] HISTORICAL RESULTS Comment:SATISFACTORY FOR TAYA LUATION HPV interp SEE NOTE [facility] HISTORICAL RESULTS Comment:Negative for intraep ithelial lesion or malignancy. Lactobacillus species SEE NOTE [facility] HISTORICAL RESULTS Comment: This Pap test has been evaluated with computer assisted technology. Based on the cytology result, reflex High Risk HPV DNA testing was not performed. Methods And Procedures Analyst SEE NOTE [facility] HISTORICAL RESULTS Comment: MAF, CT(ASCP) Test performed at [facility] [address] [address] Director: DIEGO KERN DO [facility] Infection: SEE NOTE [facility] HISTORICAL RESULTS Comment: Fungal organisms morphologically consistent with Kelly spp. 11/12/2012 9:38 AM FITNESS PROFESSIONAL Elvira El NP LAB PATHOLOGY ORDERABLES F inal Result [facility] HISTORICAL RESULTS from Last 3 Months or Most Recently Relevant to Health Maintenance Insurance Polybiotics ACCESS CHOICE Polybiotics ACCESS ANTHEM ACCESS Advance Directives For more information, please contact: [phone] * Full Code (Latest Code Status on File) Date Activated Date Inactivated Comments 11/24/2024 1:06 PM 11/25/2024 5:54 PM * Full Code Date Activated Date Inactivated Comments 08/23/2023 8:05 AM 08/23/2023 3:06 PM * Full Code Date Activated Date Inactivated Comments 08/23/2023 8:05 AM 08/23/2023 8:05 AM * Full Code Date Activated Date Inactivated Comments 10/11/2021 3:45 PM 10/12/2021 5:01 PM * Full Code Date Activated Date Inactivated Comments 05/02/2019 4:26 AM 05/04/2019 8:57 PM Care Teams Sous Chef Kitchen Manager Relationship Specialty Start Date End Date Rodrigo Lockwood PA [address] [place] [address] [place] [address] PCP - General Internal Medicine 06/14/22 [place] [id number] [facility] [place] [address] Consulting Physician Neurosurgery 08/13/24 [place] [id number] [address] [address] Consulting Physician Orthopedic Surgery 01/05/25 rox opt Optometry 01/05/25
--- OUTSIDE RECORDS SUMMARY | 2025-08-02 15:16 | XMS_ITS | Encounter Summary ---
Author Organization [facility] Address [address] [place] [address] Care Team Providers Care Adult Secondary Education Instructor Name Role Phone Unavailable Primary Care Provider Unavailabl e Prior Encounters Date Type Department Care Team Description 11/02/2019 Converted CPS Chart Documents [facility] [address] [place] [address] <No scans attached> 11/02/2019 Converted 13x Documents [facility] [address] [place] [address] <No scans attached> Plan of Treatment Not on file Procedures Procedure Name Priority Date/Time Associated Diagnosis Comments CANCELLED APPOINTMENT Routine 07/16/2017 2:00 AM CDT 31 RECEMENT CROWN Routine 01/07/2017 2:0 0 AM CDT PERIODIC ORAL EVALUATION - ESTABLISHED PATIENT Routine 01/07/2017 2:00 AM CDT ORAL HYGIENE INSTRUCTIONS Routine 2016 2:00 AM CDT PROPHYLAXIS - ADULT Routine 01/07/2017 2 :00 AM CDT BITEWINGS - FOUR RADIOGRAPHIC IMAGES Routine 01/07/2017 2:00 AM CDT ADDITIONAL X-RAY Routine 01/07/2017 2:00 AM CDT SINGLE X-RAY Routine 01/07/2017 2:00 AM CDT 19 CEMENT CROWN Routine 03/25/2015 2:00 AM CDT NC X-RAY Routine 03/25/2015 2:00 AM CDT 20 IMPLANT CROWN UNIT Routine 01/21/2015 2:00 AM CDT 19 IMPLANT CROWN UNIT Routine 01/21/2015 2:00 AM CDT 20 PREFABRICATED ABUTMENT INCLUDES MODIFICATION AND PLACEMENT Routine 01/21/2015 2:00 AM CDT 19 PREFABRICATED ABUTMENT INCLUDES MODIFICATION AND PLACEMENT Routine 01/21/2015 2:00 AM CDT ORAL HYGIENE INSTRUCTIONS Routine 2014 2:00 AM CDT PROPHYLAXIS - ADULT Routine 01/21/2015 2 :00 AM CDT 20 SECOND STAGE IMPLANT SURGERY Routine 12/15/2014 2:00 AM CHIEF REVENUE OFFICER 19 SECOND STAGE IMPLANT SURGERY Routine 12/15/2014 2:00 AM CHIEF REVENUE OFFICER 19 SECTION BRIDGE Routine 08/25/2014 2:0 0 AM CHIEF REVENUE OFFICER LIMITED ORAL EVALUATION - PROBLEM FOCUSED Routine 08/25/2014 2:00 AM CHIEF REVENUE OFFICER 20 IMPLANT Routine 08/25/2014 2:00 AM CHIEF REVENUE OFFICER 19 IMPLANT Routine 08/25/2014 2:00 AM CHIEF REVENUE OFFICER 20 EXTRACTION, ERUPTED TOOTH REQUIRING REMOVAL OF BONE AND/OR SECTIONING OF TOOTH Routine 08/25/2014 2:00 AM CHIEF REVENUE OFFICER PANORAMIC RADIOGRAPHIC IMAGE Routine 08/16/2014 2:00 AM CHIEF REVENUE OFFICER ORAL HYGIENE INSTRUCTIONS Routine 2013 2:00 AM CDT PROPHYLAXIS - ADULT Routine 06/25/2014 2 :00 AM CDT PERIODIC ORAL EVALUATION - ESTABLISHED PATIENT Routine 06/25/2014 2:00 AM CDT BITEWINGS - FOUR RADIOGRAPHIC IMAGES Routine 06/25/2014 2:00 AM CDT SINGLE X-RAY Routine 06/25/2014 2:00 AM CDT 31 CEMENT CROWN Routine 07/02/2013 2:00 AM CDT 31 CERECFIRED CROWNPOST Routine 07/02/20 13 2:00 AM CDT 19 PONTIC - PFG - POST Routine 3 2:00 AM CDT 20 RETAINER CROWN - PFG - POST Routine 07/01/2013 2:00 AM CDT 18 RETAINER CROWN - PFG - POST Routine 07/01/2013 2:00 AM CDT 15 LO AMALGAM 2 SURFACE Routine 07/01/20 13 2:00 AM CDT 5 DO AMALGAM 2 SURFACE Routine 3 2:00 AM CDT 2 O AMALGAM 1 SURFACE Routine 07/01/2013 2:00 AM CDT 31 ENDODONTIC THERAPY, MOLAR TOOTH (EXCLUDING FINAL HOLINESS) Routine 07/01/2013 2:00 AM CDT 30 ENDODONTIC THERAPY, MOLAR TOOTH (EXCLUDING FINAL HOLINESS) Routine 07/01/2013 2:00 AM CDT 29 ENDODONTIC THERAPY, MOLAR TOOTH (EXCLUDING FINAL HOLINESS) Routine 07/01/2013 2:00 AM CDT 28 ENDODONTIC THERAPY, MOLAR TOOTH (EXCLUDING FINAL HOLINESS) Routine 07/01/2013 2:00 AM CDT 20 ENDODONTIC THERAPY, MOLAR TOOTH (EXCLUDING FINAL HOLINESS) Routine 07/01/2013 2:00 AM CDT 18 ENDODONTIC THERAPY, MOLAR TOOTH (EXCLUDING FINAL HOLINESS) Routine 07/01/2013 2:00 AM CDT 14 ENDODONTIC THERAPY, MOLAR TOOTH (EXCLUDING FINAL HOLINESS) Routine 07/01/2013 2:00 AM CDT 13 ENDODONTIC THERAPY, MOLAR TOOTH (EXCLUDING FINAL HOLINESS) Routine 07/01/2013 2:00 AM CDT 4 ENDODONTIC THERAPY, MOLAR TOOTH (EXCLUDING FINAL HOLINESS) Routine 07/01/2013 2:00 AM CDT 3 ENDODONTIC THERAPY, MOLAR TOOTH (EXCLUDING FINAL HOLINESS) Routine 07/01/2013 2:00 AM CDT 31 ENDODONTIC THERAPY, MOLAR TOOTH (EXCLUDING FINAL HOLINESS) Routine 07/01/2013 2:00 AM CDT 30 ENDODONTIC THERAPY, MOLAR TOOTH (EXCLUDING FINAL HOLINESS) Routine 07/01/2013 2:00 AM CDT 29 ENDODONTIC THERAPY, MOLAR TOOTH (EXCLUDING FINAL HOLINESS) Routine 07/01/2013 2:00 AM CDT 28 ENDODONTIC THERAPY, MOLAR TOOTH (EXCLUDING FINAL HOLINESS) Routine 07/01/2013 2:00 AM CDT 20 ENDODONTIC THERAPY, MOLAR TOOTH (EXCLUDING FINAL HOLINESS) Routine 07/01/2013 2:00 AM CDT 18 ENDODONTIC THERAPY, MOLAR TOOTH (EXCLUDING FINAL HOLINESS) Routine 07/01/2013 2:00 AM CDT 14 ENDODONTIC THERAPY, MOLAR TOOTH (EXCLUDING FINAL HOLINESS) Routine 07/01/2013 2:00 AM CDT 31 ENDODONTIC THERAPY, MOLAR TOOTH (EXCLUDING FINAL HOLINESS) Routine 07/01/2013 2:00 AM CDT 30 ENDODONTIC THERAPY, MOLAR TOOTH (EXCLUDING FINAL HOLINESS) Routine 07/01/2013 2:00 AM CDT 29 ENDODONTIC THERAPY, MOLAR TOOTH (EXCLUDING FINAL HOLINESS) Routine 07/01/2013 2:00 AM CDT 28 ENDODONTIC THERAPY, MOLAR TOOTH (EXCLUDING FINAL HOLINESS) Routine 07/01/2013 2:00 AM CDT 20 ENDODONTIC THERAPY, MOLAR TOOTH (EXCLUDING FINAL HOLINESS) Routine 07/01/2013 2:00 AM CDT 18 ENDODONTIC THERAPY, MOLAR TOOTH (EXCLUDING FINAL HOLINESS) Routine 07/01/2013 2:00 AM CDT 31 ENDODONTIC THERAPY, MOLAR TOOTH (EXCLUDING FINAL HOLINESS) Routine 07/01/2013 2:00 AM CDT 30 ENDODONTIC THERAPY, MOLAR TOOTH (EXCLUDING FINAL HOLINESS) Routine 07/01/2013 2:00 AM CDT 31 ENDODONTIC THERAPY, MOLAR TOOTH (EXCLUDING FINAL HOLINESS) Routine 07/01/2013 2:00 AM CDT 31 ENDODONTIC THERAPY, PREMOLAR TOOTH (EXCLUDING FINAL HOLINESS) Routine 07/01/2013 2:00 AM CDT 30 ENDODONTIC THERAPY, PREMOLAR TOOTH (EXCLUDING FINAL HOLINESS) Routine 07/01/2013 2:00 AM CDT 29 ENDODONTIC THERAPY, PREMOLAR TOOTH (EXCLUDING FINAL HOLINESS) Routine 07/01/2013 2:00 AM CDT 28 ENDODONTIC THERAPY, PREMOLAR TOOTH (EXCLUDING FINAL HOLINESS) Routine 07/01/2013 2:00 AM CDT 20 ENDODONTIC THERAPY, PREMOLAR TOOTH (EXCLUDING FINAL HOLINESS) Routine 07/01/2013 2:00 AM CDT 18 ENDODONTIC THERAPY, PREMOLAR TOOTH (EXCLUDING FINAL HOLINESS) Routine 07/01/2013 2:00 AM CDT 14 ENDODONTIC THERAPY, PREMOLAR TOOTH (EXCLUDING FINAL HOLINESS) Routine 07/01/2013 2:00 AM CDT 13 ENDODONTIC THERAPY, PREMOLAR TOOTH (EXCLUDING FINAL HOLINESS) Routine 07/01/2013 2:00 AM CDT 4 ENDODONTIC THERAPY, PREMOLAR TOOTH (EXCLUDING FINAL HOLINESS) Routine 07/01/2013 2:00 AM CDT 31 ENDODONTIC THERAPY, PREMOLAR TOOTH (EXCLUDING FINAL HOLINESS) Routine 07/01/2013 2:00 AM CDT 30 ENDODONTIC THERAPY, PREMOLAR TOOTH (EXCLUDING FINAL HOLINESS) Routine 07/01/2013 2:00 AM CDT 29 ENDODONTIC THERAPY, PREMOLAR TOOTH (EXCLUDING FINAL HOLINESS) Routine 07/01/2013 2:00 AM CDT 28 ENDODONTIC THERAPY, PREMOLAR TOOTH (EXCLUDING FINAL HOLINESS) Routine 07/01/2013 2:00 AM CDT 20 ENDODONTIC THERAPY, PREMOLAR TOOTH (EXCLUDING FINAL HOLINESS) Routine 07/01/2013 2:00 AM CDT 18 ENDODONTIC THERAPY, PREMOLAR TOOTH (EXCLUDING FINAL HOLINESS) Routine 07/01/2013 2:00 AM CDT 14 ENDODONTIC THERAPY, PREMOLAR TOOTH (EXCLUDING FINAL HOLINESS) Routine 07/01/2013 2:00 AM CDT 13 ENDODONTIC THERAPY, PREMOLAR TOOTH (EXCLUDING FINAL HOLINESS) Routine 07/01/2013 2:00 AM CDT 31 ENDODONTIC THERAPY, PREMOLAR TOOTH (EXCLUDING FINAL HOLINESS) Routine 07/01/2013 2:00 AM CDT 30 ENDODONTIC THERAPY, PREMOLAR TOOTH (EXCLUDING FINAL HOLINESS) Routine 07/01/2013 2:00 AM CDT 29 ENDODONTIC THERAPY, PREMOLAR TOOTH (EXCLUDING FINAL HOLINESS) Routine 07/01/2013 2:00 AM CDT 28 ENDODONTIC THERAPY, PREMOLAR TOOTH (EXCLUDING FINAL HOLINESS) Routine 07/01/2013 2:00 AM CDT 20 ENDODONTIC THERAPY, PREMOLAR TOOTH (EXCLUDING FINAL HOLINESS) Routine 07/01/2013 2:00 AM CDT 31 ENDODONTIC THERAPY, PREMOLAR TOOTH (EXCLUDING FINAL HOLINESS) Routine 07/01/2013 2:00 AM CDT 30 ENDODONTIC THERAPY, PREMOLAR TOOTH (EXCLUDING FINAL HOLINESS) Routine 07/01/2013 2:00 AM CDT 29 ENDODONTIC THERAPY, PREMOLAR TOOTH (EXCLUDING FINAL HOLINESS) Routine 07/01/2013 2:00 AM CDT 31 ENDODONTIC THERAPY, PREMOLAR TOOTH (EXCLUDING FINAL HOLINESS) Routine 07/01/2013 2:00 AM CDT 30 ENDODONTIC THERAPY, PREMOLAR TOOTH (EXCLUDING FINAL HOLINESS) Routine 07/01/2013 2:00 AM CDT 29 ENDODONTIC THERAPY, PREMOLAR TOOTH (EXCLUDING FINAL HOLINESS) Routine 07/01/2013 2:00 AM CDT 28 ENDODONTIC THERAPY, PREMOLAR TOOTH (EXCLUDING FINAL HOLINESS) Routine 07/01/2013 2:00 AM CDT 29 CEREC CROWN POST Routine 07/01/2013 2 :00 AM CDT 28 CEREC CROWN POST Routine 07/01/2013 2 :00 AM CDT 31 CROWN PFM POST Routine 07/01/2013 2:0 0 AM CDT 30 CROWN PFM POST Routine 07/01/2013 2:0 0 AM CDT 14 CROWN PFM POST Routine 07/01/2013 2:0 0 AM CDT 13 CROWN PFM POST Routine 07/01/2013 2:0 0 AM CDT 4 CROWN PFM POST Routine 07/01/2013 2:00 AM CDT 3 CROWN PFM POST Routine 07/01/2013 2:00 AM CDT 12 DO CEREC INLAY 2 SURF Routine 013 2:00 AM CDT COMPREHENSIVE ORAL EVALUATION - NEW OR ESTABLISHED PATIENT Routine 07/01/2013 2:00 AM CDT PROPHYLAXIS - ADULT Routine 07/01/2013 2 :00 AM CDT ORAL HYGIENE INSTRUCTIONS Routine 2012 2:00 AM CDT PANORAMIC RADIOGRAPHIC IMAGE Routine 07/01/2013 2:00 AM CDT INTRAORAL - COMPREHENSIVE SERIES OF RADIOGRAPHIC IMAGES Routine 07/01/2013 2:00 AM CDT INTRAORAL PHOTO Routine 07/01/2013 2:00 AM CDT INTRAORAL PHOTO Routine 07/01/2013 2:00 AM CDT INTRAORAL PHOTO Routine 07/01/2013 2:00 AM CDT INTRAORAL PHOTO Routine 07/01/2013 2:00 AM CDT INTRAORAL PHOTO Routine 07/01/2013 2:00 AM CDT INTRAORAL PHOTO Routine 07/01/2013 2:00 AM CDT INTRAORAL PHOTO Routine 07/01/2013 2:00 AM CDT INTRAORAL PHOTO Routine 07/01/2013 2:00 AM CDT INTRAORAL PHOTO Routine 07/01/2013 2:00 AM CDT INTRAORAL PHOTO Routine 07/01/2013 2:00 AM CDT 15 MOL COMPOSITE FILLING Routine 013 2:00 AM CDT 12 DO COMPOSITE FILLING Routine 07/01/20 13 2:00 AM CDT Visit Diagnoses Not on file
--- OUTSIDE RECORDS SUMMARY | 2025-08-02 15:16 | XMS_ITS | Clinical Summary ---
Author Organization [facility] Address [address] [facility], [address] [address] Phone Care Team Providers Care Chief Nuclear Medicine Technologist Name Role Phone Ranulfo Sol MD Primary Care Provider Unavaila ble Allergies Active Allergy Reactions Criticality Noted Date Comments Azithromycin Rash 05/20/2018 Medications albuterol (PROAIR HFA) 108 (90 Base) MCG/ACT Aerosol Solution inhale 2 puff by inhalation route every 4 - 6 hours as needed 5 Active loratadine (CLARITIN) 10 MG Tablet take 1 tablet by oral route every day 7 Active simvastatin (ZOCOR) 20 MG Tablet TAKE 1 TABLET DAILY 8 Active lisinopril (PRINIVIL, ZESTRIL) 20 MG Tablet TAKE 1 TABLET DAILY 7 Active FLUoxetine (PROZAC) 40 MG Capsule 8 Active celecoxib (CELEBREX) 200 MG Capsule TAKE 1 CAPSULE DAILY 7 Active Ascorbic Acid (VITAMIN C PO) Take 1 Tab by mouth daily. Active Multiple Vitamin (MULTI-VITAMIN PO) Take 1 Tab by mouth daily. Active esomeprazole (NEXIUM) 40 MG CAPSULE DELAYED RELEASE Take 1 Cap by mouth 2 times daily (before meals). 180 Cap 3 8 Active Family History Medical History Relation Name Comments Cancer Father prostate, bladd er Cancer Maternal Grandfather lung Cancer Mother breast Relation Name Status Comments Father Maternal Grandfather Mother Alive Social History Tobacco Use Types Packs/Day Years Used Date Smoking Tobacco: Never Smokeless Tobacco: Never Alcohol Use Standard Drinks/Week Comments Yes 0 (1 standard drink = 0.6 oz pur e alcohol) rarely Comments No Sex and Gender Information Value Date Recorded Sex Assigned at Not on file Legal Sex Female 11:53 PM CDT Gender Identity Not on file Sexual Orientation Not on file 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 file Not on file Not on file Last Filed Vital Signs Vital Sign Reading Time Taken Comments Blood Pressure 120/74 06/06/2018 9:31 AM CDT Pulse 61 06/06/2018 9:31 AM CDT Temperature 36 C (96.8 F) 06/06/2018 9:31 AM CDT Respiratory Rate 17 06/06/2018 9:31 AM CDT Oxygen Saturation 99% 06/06/2018 9:31 AM CDT Inhaled Oxygen Concentration - - Weight 132.5 kg (292 lb) 06/06/2018 7:46 AM CDT Height 172.7 cm (5' 8) 06/06/2018 7:46 AM CDT Body Mass Index 44.4 06/06/2018 7:46 AM CDT Plan of Treatment Health Maintenance Due Date Last Done Comments Hepatitis C Virus (HCV) Screening 1965 TdaP Immunization 1965 Cologuard 02/07/2008 Immunochemical Fecal Occult Blood 02/07/2008 Pneumococcal Immunization (5 0+ years) (1 of 1 - PCV) 2013 Zoster Immunization (1 of 2) 2013 Colonoscopy 05/22/2023 05/22/2013 Colorectal Cancer Screening 05/22/2023 Influenza Immunization (#1) 2025 11/0 12/2015, 10/19/2015 SARS-COV-2 Immunization ( - 2024- season) 2025 10/26/2021, 02/22/2021, 02/01/2021 Respiratory Syncytial Virus (RSV) Immunization (Adult) (1 - 1-dose 75+ series) 2038 Hepatitis B Immunization Aged Out No longer eligible based on patient's age to complete this topic Human Papillomavirus (HPV) Immunization Aged Out No longer eligible b ased on patient's age to complete this topic Meningococcal Immunization (ACWY) Aged Out No longer eligible b ased on patient's age to complete this topic Rotavirus Immunization Aged Out No lo nger eligible based on patient's age to complete this topic Procedures Procedure Name Priority Date/Time Associated Diagnosis Comments COLONOSCOPY Routine 05/22/2013 from Last 3 Months or Most Recently Relevant to Health Maintenance Results * COLONOSCOPY (05/22/2013) Teddy Burch DO PROCEDURE/MINOR SURGICAL ORDERA BLES Final Result from Last 3 Months or Most Recently Relevant to Health Maintenance [place] [address] [place] [address] Care Teams Chief Nuclear Medicine Technologist Relationship Specialty Start Date End Date Ranulfo Sol MD [address] [facility] [address] GOLDS[address] [place] [id number] PCP - General Internal Medicine 06/04/18
--- OUTSIDE RECORDS SUMMARY | 2025-08-02 15:16 | XMS_ITS | Encounter Summary ---
Author Organization [facility] Address [address] [place] [address] Care Team Providers Care Glue Wheel Operator Name Role Phone Rodrigo Lockwood Primary Care Provider Josh Mckeon MD Unavailable [phone] Major Carpenter MD Unavailable [phone] Encounter Details Date Type Department Care Team (Late st Contact Info) Description 01/08/2025 Telephone [facility] [address] [address] [address] [place] [address] Oneil Amor Social History Tobacco Use Types Packs/Day Years Used Date Smoking Tobacco: Never Smokeless Tobacco: Never Alcohol Use Standard Drinks/Week Comments Yes 0 (1 standard drink = 0.6 oz pur e alcohol) [facility] Utilities Answer Date Recorded In the past 12 months has [facility], gas, oil, or water Tile threatened to shut off services in your [...] week 11/25/2024 How often do you attend [facility] or congregational services? 1 to 4 times per year 11/25/2024 Do you belong to any clubs o r organizations such as religious groups, unions, fraternal or athletic groups, or school groups? No 11/25/2024 How often do you attend meet ings of the clubs or organizations you belong to? Never 11/25/2024 Are you , , di vorced, , never , or living with a partner? 11/25/2024 AUDIT-C Answer Date Recorded Q1: How often do you have a drink containing alc ohol? Monthly or less 01/05/2025 Q2: How many drinks containi ng alcohol do you have on a typical day when you are drinking? 1 or 2 01/05/2025 Q3: How often do you have si x or more drinks on one occasion? Never 01/05/2025 Overall Financial Resource Strain (CARDIA) Answe r Date Recorded How hard is it for you to pa y for the very basics like food, housing, medical care, and heating? Not hard at all 11/25/2024 PHQ-2 Answer Date Recorded PHQ-2 Total Score (If total score is 3 or more points, staff should administer the PHQ-9) 0 01/05/2025 Hunger Vital Sign Answer Date Recorded Within [...] in the past 12 m [facility], were you homeless or living in a residential (including now)? No 11/25/2024 Personal Safety Answer Date Recorded Have you ever been in or are you currently in a harmful physical or emotional relationship or is someone making you feel afraid or unsafe? 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 on file Not on file Not o n file documented as of this encounter Plan of Treatment Not on file documented as of this encounter Visit Diagnoses Not on filedocumented in this encounter Care Teams Glue Wheel Operator Relationship Specialty Start Date End Date Rodrigo Lockwood PA [address] [place] [address] DR GOLDSMITH [address] [place] [address] PCP - General Internal Medicine 06/14/22 [place] [id number] [facility] [place] [address] Consulting Physician Neurosurgery 08/13/24 [place] [address] [address] [address] Consulting Physician Orthopedic Surgery 01/05/25 rox opt Optometry 01/05/25 documented as of this encounter
--- OUTSIDE RECORDS SUMMARY | 2025-08-02 15:16 | XMS_ITS | Clinical Summary ---
Author Organization [facility] Address [address] [place] [address] Care Team Providers Care Content Development Manager Name Role Phone Unavailable Primary Care Provider Unavailabl e Social History Tobacco Use Types Packs/Day Years Used Date Smoking Tobacco: Never Assessed Comments Unknown Sex and Gender Information Value Date Recorded Sex Assigned at Not on file Legal Sex Female 12:15 AM PST Gender Identity Not on file Sexual Orientation Not on file Plan of Treatment Not on file
--- OUTSIDE RECORDS SUMMARY | 2025-08-02 15:17 | XMS_ITS | Clinical Summary ---
Author Organization [facility] Address [address] [facility] [place] [address] Care Team Providers Care Fabric Separator Operator Name Role Phone Ranulfo Sol MD Primary Care Provi rae David Storey MD Unavailable [phone] Source Comments [facility],non-owned Affiliates and Associated Physician Practices is amultiple site organization consisting of ambulatory clinics and hospital sitesin [place], [place], [place] and [place]. This disclosure is being madepursuant to the Care Everywhere program and may not contain all information available regarding this patient. Last updated 18.[facility] Allergies Active Allergy Reactions Criticality Noted Date Comments Aspirin Unknown Medium Azithromycin Rash Low 12/19/2015 Sulfamethoxazole W-Trimethoprim Urticaria Medium 08/15 Medications * Be aware that medications may not be up to date on this document. Alwaysverify current medications with the patient. celecoxib (CELEBREX) 200 MG capsule Take 200 mg by mouth once daily 10/19/2015 Active FLUoxetine (PROZAC) 40 MG capsule Take 40 mg by mouth once daily 10/19/2015 Active lisinopril (PRINIVIL; ZESTRIL) 20 MG tablet Take 20 mg by mouth once daily 10/19/2015 Active simvastatin (ZOCOR) 20 MG tablet Take 20 mg by mouth once daily 10/19/2015 Active multivitamin daily (THERAGRAN) tablet Take 1 Tab by mouth daily with food Active vitamin C (ASCORBIC ACID) 1000 MG tablet Take 1,000 mg by mouth once daily Active esomeprazole (NEXIUM) 40 MG capsule Take 40 mg by mouth once daily 07/25/2016 Active loratadine (CLARITIN) 10 MG tablet Take 10 mg by mouth once daily Active budesonide-formo terol (SYMBICORT) 160-4.5 MCG/ACT inhaler Inhale 2 Puffs by mouth 2 times daily Only takes as needed Active montelukast (SINGULAIR) 10 MG tablet Take 10 mg by mouth once daily 11/18/2017 Active PROAIR HFA 108 (90 BASE) MCG/ACT inhaler Inhale 2 puffs by mouth every 4 hours as needed 6 10/14/2017 Active Cetirizine HCl (ZYRTEC PO) Active cephalexin (KEFLEX) 250 MG capsule 02/15/2020 Active Multiple Vitamin (MULTI-VITAMINS) TABS Active solifenacin (VESICARE) 5 MG tablet 03/22/2020 Active traMADol (ULTRAM) 50 MG tablet Active Active Problems Problem Noted Date Diagnosed Date Presence of right artificial knee joint 01/28/20 18 Recurrent major depressive disorder, in full rem ission 08/20/2017 Overview (01/27/2018): Last Assessment & Plan: Well controlled with meds Primary osteoarthritis of right knee 04/10/2016 Family History Medical History Relation Name Comments Cancer - Other Father liver and pro state Cancer - Breast Mother Relation Name Status Comments Father Mother Social History Tobacco Use Types Packs/Day Years Used Date Smoking Tobacco: Never Smokeless Tobacco: Never Alcohol Use Standard Drinks/Week Comments Yes 0 (1 standard drink = 0.6 oz pur e alcohol) occ Comments No Sex and Gender Information Value Date Recorded Sex Assigned at Not on file Legal Sex Female 10:33 AM CDT Gender Identity Not on file Sexual Orientation Not on file Last Filed Vital Signs Vital Sign Reading Time Taken Comments Blood Pressure 130/88 03/19/2019 3:02 PM CDT Pulse 73 03/19/2019 3:02 PM CDT Temperature 37.2 C (99 F) 03/19/2019 3:02 PM CDT Respiratory Rate 16 03/19/2019 3:02 PM CDT Oxygen Saturation 97% 03/19/2019 3:02 PM CDT Inhaled Oxygen Concentration - - Weight 131.5 kg (290 lb) 03/19/2019 3:02 PM CDT Height 175.3 cm (5' 9) 03/19/2019 3:02 PM CDT Body Mass Index 42.83 03/19/2019 3:02 PM CDT Plan of Treatment Health Maintenance Due Date Last Done Comments COLOGUARD (AGES 45-75) - COLON CA SCREENING 1965 COLON MONITORING 1963 COLONOSCOPY - COLON CA SCREENING 1963 CT COLONOGRAPHY - COLON CA SCREENING 1963 Colorectal Cancer Screening 1963 FIT - COLON CA SCREENING 1963 FLEX SIG - COLON CA SCREENING 1963 HIV SCREENING 1978 HEPATITIS C SCREENING 02/01/1981 DTAP/TDAP/TD VACCINES (1 - Tdap) 1982 PNEUMOCOCCAL VACCINE 50+ (1 of 1 - PCV) 2013 ZOSTER VACCINE (1 of 2) 2013 MAMMOGRAM 04/21/2020 04/21/2018 Respiratory Syncytial Virus (RSV) Vaccine Pt: or over 60 yrs (1 - Risk 60-74 years 1-dose series) 2023 DEPRESSION SCREENING 10/14/2024 COVID-19 VACCINE (1 - season) 2025 INFLUENZA VACCINE (#1) 2025 9, 07/14/2018, 08/16/2016, Additional history exists HEPATITIS B VACCINE Aged Out No longe r eligible based on patient's age to complete this topic HIB VACCINE Aged Out No longer eligi ble based on patient's age to complete this topic HPV VACCINE Aged Out No longer eligi ble based on patient's age to complete this topic MENINGOCOCCAL (Group B) VACCINE SHARED DECISION-MAKING Aged Out No longer eligible based on patient's age to complete this topic MENINGOCOCCAL GROUPS A/C/Y/W VACCINE Aged Out No longer eligible based on patient's age to complete this topic Medical Devices Implanted Type Area Radio News Anchor Device Identifier Shelf Expiration Date Model / Serial / Lot Cmnt Bone Co Hv 40gm Implanted:Qty: 1 on 09/26/2016 by David Storey MD at [facility] Right: Knee [employer] [id number] 01/11/2018 [id number] / / [id number] 67.5mm Femoral Implanted:Qty: 1 on 09/26/2016 by David Storey MD at [facility] Right: Knee [id number] 08/14/2026 [id number] / / [id number] Tray Tib 75mm Kn Cocr I Beam Implanted:Qty: 1 on 09/26/2016 by David Storey MD at [facility] Right: Knee [employer] [id number] 08/01/2026 [id number] / / [id number] Cmpnt Ptlr 28mm 1 Pg Wire Ascnt Arcm Kn Implanted:Qty: 1 on 09/26/2016 by David Storey MD at [facility] Right: Knee [employer] [id number] 08/29/2021 [id number] / / [id number] Tibial Bearing Implanted:Qty: 1 on 09/26/2016 by David Storey MD at [facility] Right: Knee [id number] 08/05/2021 [id number] / / [id number] Insurance [employer] Advance Directives * Full Code (Latest Code Status on File) Date Activated Date Inactivated Comments 09/26/2016 12:17 PM 09/28/2016 1:23 PM Care Teams Fabric Separator Operator Relationship Specialty Start Date End Date Ranulfo Sol MD PCP - General Internal Medicine 12/19/15 [place] [address] [address] Orthopedic Surgery 12/19/15
== END 2025-08-02 14:30 | disposition home or self-care (01) ==
PROVIDERS: PCP Physician Assistant
DX: R20.0 Anesthesia of skin (principal); R20.2 Paresthesia of skin; K21.9 Gastro-esophageal reflux disease without esophagitis; I10 Essential (primary) hypertension; E78.00 Pure hypercholesterolemia, unspecified; F41.9 Anxiety disorder, unspecified; F32.A Depression, unspecified; Z90.89 Acquired absence of other organs; Z90.711 Acquired absence of uterus with remaining cervical stump
CPT/HCPCS: 99213; G0463